=== PATIENT | male | born 1990 | race African-American/Black ===

== ENCOUNTER 2017-09-01 09:50 | Inpatient (IN) | payer SELFPAY ==
[2017-09-01] MEDS ORDERED: Ondansetron HCl/PF 4 MG/2 ML Vial ONE (11:37)
[2017-09-01] MEDS ORDERED: Acetaminophen 500 MG TAB ONE (12:36)
[2017-09-01] MEDS ORDERED: ISOVUE-370 76%-LOCM 1 ML ONE (12:42)
--- NOTE | 2017-09-01 12:44 | CT ---
CT ANGIOGRAM CHEST: 09/01/2017 HISTORY: Dyspnea. Shortness of breath. Productive cough. COMPARISON: Chest CT without contrast from 03/04/2016. TECHNIQUE: Serial axial CT imaging obtained at 2.5 mm intervals, from the thoracic inlet through the upper abdom en, with IV contrast, using a CT angiogram protocol. Coronal and sagittal 3D reformatted imaging obt ained. FINDINGS: No axillary lymphadenopathy is noted. No enlarged lymph nodes are seen in the hilar or mediastinal regions. There are granulomata within the spleen. No significant pleural, pericardial, or mediastinal fluid is noted. Secondary to timing of the contrast bolus, assessment of the lobar, segmental, and subsegmental pulmo nary arteries is suboptimal. There is no evidence for a central pulmonary arterial embolism. There is no pneumothorax evident. There is an area of perihilar opacity on the left with central air bronchogram formation, unchanged s chloe 03/04/2016, best seen on axial image 45. There are peripheral areas of linear density noted wit hin the lingula, posteriorly and inferiorly, stable as well. There is an area of nonspecific, ill-defined, reticulonodular density within the medial aspect of the superior segment, left lower lobe, best seen on image 48, new. There is an ill-defined area of irregular pulmonary parenchymal opacity on axial image 53, within the left lower lobe, measuring approximately 1.2 cm in transverse dimension, unchanged. There is an irregular, spiculated, mass-like opacity within the left lower lobe, further inferiorly, best seen on image 74, measuring 1.7 cm in transverse dimension, grossly unchanged. There is a cluster of reticulonodular densities within the posterolateral left lower lobe, superior s egment, best seen on image 56, new. There is a stable area of scar and/or volume loss within the right upper lobe, laterally, on image 32 . There are new, nonspecific, reticulonodular densities noted within the posterior aspect of the rig ht upper lobe, best seen on image 38. Extensive coarse, linear opacities are noted within the right middle lobe, stable. There are areas o f new reticulonodular density in the right middle lobe, best seen on image 52. There are coarse, linear interstitial densities along the bronchopulmonary vasculature, within the ri ght lower lobe, stable. There are some ill defined, new, reticulonodular densities in a bronchovascu lar distribution, within the right lower lobe. No lobar consolidation. Review of the osseous structures demonstrates no suspicious lytic or blastic bone lesions. IMPRESSION: 1. No evidence for a central pulmonary embolism. Distal pulmonary arterial branches are not optimal ly assessed secondary to timing. 2. There are extensive, coarse densities within both lungs, stable when compared to prior imaging, s uggesting scar. There are numerous new clustered areas of reticulonodular density, as detailed above , suggesting a superimposed acute nonspecific infectious/inflammatory pneumonitis. Thus, follow-up i maging via CT, following treatment, is advised to document resolution of the acute reticulonodular de nsities. POS: [facility]
[2017-09-01 13:01] LABS: O2 Tension (PaO2) 65.8 mmHg (80.0-100.0); pH, Arterial 7.32 (7.35-7.45)
[2017-09-01 13:02] LABS: Bilirubin Moderate (Negative); Blood, Urine Moderate (Negative); Clarity CLEAR (Clear); Glucose, Urine (Dipstick) Negative (Negative); Leukocyte Negative (Negative); Nitrite Negative (Negative); Protein, Urine (Dipstick) 300 mg/dL (Neg-Trace)
[2017-09-01 13:02] LABS: Actual Bicarbonate (HCO3a) 32.7 mEq/L (22-26); Base Excess (BEa) 3.8 mEq/L (0 (+/-) 2.5); Calcium, Ionized 1.2 mmol/L (1.12-1.30); Hematocrit-ABG 59.8 % (42.0-52.0); Hemoglobin (Hb) 17.8 g/dL (14.0-18.0)
[2017-09-01 13:03] LABS: Bacteria/HPF None Seen HPF (None Seen); Pathc Cast-AUWi Flag 1.49 (0-2.49); Squamous Epithelial 0-3 HPF (0-3)
[2017-09-01 13:03] LABS: Analyzer IN Cardio ER; Puncture Site LRA
[2017-09-01 13:06] LABS: Hyaline Casts/LPF 0-3 HYALINE CAST LPF (0-3 Hyaline); Specific Gravity, Urine 1.057 (1.002-1.036)
[2017-09-01] MEDS ORDERED: methylPREDNISolone Sod Succ/PF 125 MG/2 ML VIAL ONE (13:12)
[2017-09-01 13:14] LABS: Amphetamine Not Detected (NotDetected); Barbiturates Screen Not Detected (NotDetected); Benzodiazepine Screen Not Detected (NotDetected); Cocaine Metabolite Screen Not Detected (NotDetected); Medtox Control Line Valid? VALID (VALID); Medtox Reader # READER 1; Methadone Not Detected (NotDetected); Methamphetamine Not Detected (NotDetected); Opiate Screen Not Detected (NotDetected); Oxycodone Screen Not Detected (NotDetected); Phencyclidine (PCP) Detected (NotDetected); THC/Cannabinoid Screen Detected (NotDetected); Tricyclic Screen Not Detected (NotDetected)
[2017-09-01] MEDS ORDERED: Water For Inject, Bacteriostat 30 ML ONE (13:30)
[2017-09-01] MEDS ORDERED: cefTRIAXone\\ROCEPHIN 2 GM, Admixture Fee 1 EACH in Sodium Chloride 0.9% 100 ML IVPB SCH (13:30)
--- NOTE | 2017-09-01 13:32 | RAD ---
CHEST ONE VIEW: HISTORY: Chest pain. Sepsis. COMPARISON: 01/09/2017 FINDINGS: The cardiac silhouette is magnified by projection. The pulmonary vasculature is at the upper limits of normal. Patchy infiltrates throughout the lungs, more pronounced at the bases, are similar in zach earance to the recent CT scan. No evidence of pneumothorax. surveillance monitor leads overly the chest. IMPRESSION: Multifocal pneumonitis. POS: [facility]
[2017-09-01] MEDS ORDERED: Azithromycin 500 MG in Sodium Chloride 0.9% 250 ML 250 ML IVPB SCH (13:45)
[2017-09-01 13:51] LABS: ALT (SGPT) 30 U/L (8-55); AST (SGOT) 28 U/L (5-34); Albumin 4.1 g/dL (3.5-5.0); Alkaline Phosphatase 58 U/L (40-150); Anion Gap 15 mmol/L (10-20); BUN (Urea Nitrogen) 12 mg/dL (8.9-20.6); Bilirubin, Total 0.9 mg/dL (0.2-1.2); Calc. Creatinine Clearance 0 mL/min (70-130); Calcium 8.9 mg/dL (7.8-10.44); Carbon Dioxide 30 mmol/L (22-29); Chloride 95 mmol/L (98-107); Estimated GFR-MDRD Greater than 90; Globulin 3.5 g/dL (2.4-3.5); Glucose 108 mg/dL (70-105); Potassium 3.9 mmol/L (3.5-5.1); Protein, Total 7.6 g/dL (6.0-8.3); Sodium 136 mmol/L (136-145)
[2017-09-01 13:53] LABS: Hemoglobin 18.1 g/dL (14.0-18.0); Mean Corpuscular HGB CONC 31.7 g/dL (32.0-36.0); Mean Corpuscular Hemoglobin 30.4 pg (27.0-31.0); Mean Corpuscular Volume 95.7 fl (80.0-94.0); Mean Platelet Volume 8.9 fL (7.4-10.4); Platelet Count 129 thou/uL (130-400); RBC Distribution Width 12.9 % (11.5-14.5); Red Blood Cell (RBC) Count 5.97 mill/uL (4.70-6.10); White Blood Cell (WBC) Count 6.7 thou/uL (4.8-10.8)
[2017-09-01] MEDS ORDERED: Ondansetron HCl/PF 4 MG/2 ML Vial IVP PRN (14:02)
[2017-09-01 14:18] LABS: Band 11 % (5-11); Lymphocytes 15 % (21-51); MDiff Complete? YES; Monocytes 9 % (0-10); Neutrophil 63 % (42-75); PLT Morphology Comment Appears Decreased; Reactive Lymphocytes 2 % (0-10)
--- NOTE | 2017-09-01 15:01 | HP ---
PRIMARY CARE PROVIDER: None. Referred to [facility] by [facility]. HISTORY OF PRESENT ILLNESS: The patient states he has been sick a month or so, got fired at work bec ause he could not do his job, short of breath, dyspnea on exertion, cough with green sputum, little b lood mixed in with it, undocumented fever, chills, night sweats, daily uses K2, PCP, THC and smokes a t least half pack a day. PAST MEDICAL HISTORY: Hypertension, asthma. He was admitted for a similar problem about 18 months a go. CURRENT MEDICATIONS: Takes no medicines. ALLERGIES: Has no medical allergies only. PAST SURGICAL HISTORY: Tonsillectomy. FAMILY HISTORY: Mother is alive at bedside with colon cancer, coronary artery disease, hypertension. Father unknown. SOCIAL HISTORY: Social status single. Smokes half a pack a day, uses aforementioned drugs, denies a lcohol. CODE STATUS: FULL CODE STATUS. REVIEW OF SYSTEMS: GENERAL: Headache. No dizziness or fainting. EYES: He has blurred vision. No double vision, flashing lights. EAR, NOSE, AND THROAT: No ear pain or drainage. No nasal bleeding . No trouble swallowing. CARDIAC: No chest pain, orthopnea or paroxysmal nocturnal dyspnea. RESPI RATIONS: See present illness. 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 GENITOURINARY: No hematuria, dysuria or nocturia. MUSCULOSKELETAL: No pain or swelling in his arms or legs. NEUROLOGIC: No strokes, seizu res, focal weakness. PSYCHIATRIC: No anxiety or depression. SKIN: No bruises, bleeding or rash. HEME/LYMPH: No tender or swollen lymph nodes in axilla, inguinal or cervical area. PHYSICAL EXAMINATION: VITAL SIGNS: Blood pressure 107/63, tachycardic at 124, respirations 30, O2 sat 95% on BiPAP 2 liter s. GENERAL: He is alert, oriented, cooperative. HEENT: Examination of his head, eyes, ears, nose, and throat reveal pupils equal, round, and reactiv e to light. Extraocular movements are intact. Sclerae are white. Tympanic membranes clear. Nose c lear. Oral mucous membranes are wet. NECK: Supple, without jugular venous distention, adenopathy or thyromegaly. CHEST: Clear to percussion, but he does have tight wheezes with rhonchi in all turner. HEART: Tachycardic rhythm. First and second heart sounds clear. No murmurs or gallops. ABDOMEN: Soft, bowel sounds are normal. There is no hepatosplenomegaly, no mass, no rebound, no bru its. EXTREMITIES: Reveal no cyanosis, clubbing or edema. PULSES: Carotid, radial, femoral, and dorsalis pedis pulses intact, symmetric. SKIN: Warm and dry without bruises or rash. HEME/LYMPH: No tender or swollen lymph nodes in axilla, inguinal or cervical area. NEUROLOGICAL: Cranial nerves II-XII are intact. Deep tendon reflexes symmetric. IMAGING DATA AND LABORATORY DATA: EKG; sinus tachycardia, no acute ST-T segment changes, reviewed by me. Chest x-ray; infiltrate in the right and left lower lobes. No cardiomegaly. CT angiogram reve als no pulmonary emboli. Laboratory drug screen reveals PCP and THC. Blood gas; pH 7.32, CO2 55, O2 68.5. ADMITTING DIAGNOSES: 1. Acute respiratory failure with hypoxia and hypercapnia. 2. Bilateral pneumonia. 3. Ongoing polysubstance abuse. 4. Acute exacerbation of pneumonia of asthma. PLAN: 1. IMCU. 2. BiPAP on 05/06 with O2 to maintain sats of 92%. 3. Nebulizers DuoNeb q.4 hours. 4. Blood cultures have been drawn. He will be started on cefepime and Levaquin. 5. IV steroids, high dose. 6. Pulmonology consult.
[2017-09-01 16:14] VITALS: BMI 46.7
[2017-09-01] MEDS ORDERED: Cefepime 2 GM in Sodium Chloride 0.9% 100 ML IVPB SCH (21:00)
[2017-09-02] MEDS: Cefepime 2 GM, Syringe 2.5 ML in Sterile Water 10 ML SLOW IVP SCH ×2 (00:06→10:06)
[2017-09-02] MEDS: Acetaminophen 325 MG TAB PO PRN (01:35)
[2017-09-02 04:55] LABS: #Lymphocytes 0.8 thou/uL (1.20-3.40); #Monocytes 0.4 thou/uL (0.11-0.59); #Neutrophils 1.8 thou/uL (1.40-6.50); %Basophils 0.7 % (0.0-1.0); %Eosinophils 0.1 % (0.0-10.0); %Lymphocytes 26.9 % (21.0-51.0); %Monocytes 12.8 % (0.0-10.0); %Neutrophils 59.5 % (42.0-75.0); Hemoglobin 17.4 g/dL (14.0-18.0); Mean Corpuscular HGB CONC 32.2 g/dL (32.0-36.0); Mean Corpuscular Volume 96.3 fl (80.0-94.0); Mean Platelet Volume 8.5 fL (7.4-10.4); Platelet Count 124 thou/uL (130-400); RBC Distribution Width 12.7 % (11.5-14.5); Red Blood Cell (RBC) Count 5.61 mill/uL (4.70-6.10); White Blood Cell (WBC) Count 3.1 thou/uL (4.8-10.8)
[2017-09-02 05:14] LABS: Anion Gap 15 mmol/L (10-20); BUN (Urea Nitrogen) 10 mg/dL (8.9-20.6); Calc. Creatinine Clearance 269 mL/min (70-130); Calcium 9.1 mg/dL (7.8-10.44); Carbon Dioxide 31 mmol/L (22-29); Chloride 97 mmol/L (98-107); Estimated GFR-MDRD Greater than 90; Glucose 201 mg/dL (70-105); Potassium 4.5 mmol/L (3.5-5.1); Sodium 138 mmol/L (136-145)
--- NOTE | 2017-09-02 06:15 | CON ---
DATE OF CONSULTATION: 09/01/2017 HISTORY OF PRESENT ILLNESS: Mr. Valentin is a 26-year-old male. I have seen him in the past. He had cavitary nodular infiltrates back in 2014 secondary to inhaled drug use. He underwent bronchoscopy with lavage. No acid-fast bacilli or other pathogens were identified. He never kept any followup appointments with me. He continues to use K2, PCP, and marijuana. He presented with extreme respiratory distress requiring BiPAP. He is better but [facility] He denies fever. His mother is at the bedside. She remembers me from his last admission when I was involved with in 2014. He is also a tobacco user. He has a history of hypertension and asthma. SOCIAL HISTORY: He denies being a daily drinker. He smokes multiple different drugs, smokes tobacco . MEDICATIONS: He is on no medications. ALLERGIES: Has no drug allergies. PAST SURGICAL HISTORY: He has had a tonsillectomy. FAMILY HISTORY: Positive for cancer, vascular disease, and hypertension. REVIEW OF SYSTEMS: Otherwise negative. PHYSICAL EXAMINATION: GENERAL: He is off BiPAP when I evaluated him. VITAL SIGNS: He is afebrile, heart rate is 114, respiratory rate is 28, temperature is 98 on 3 liter s, blood pressure 119/70. HEENT: Pupils are equal. NECK: Supple. LUNGS: Remarkable for coarse diffuse wheezes. HEART: Regular rhythm. ABDOMEN: Soft. EXTREMITIES: Without asymmetry. IMAGING: CT pulmonary angiogram was reviewed by me. He has changes of bronchiectasis. He has an area on his left unchanged since 2016. He has a density in the left base that is unchanged. IMPRESSION: 1. Reactive airways aggravated by inhaled K2, PCP, and marijuana or tobacco. 2. Perhaps a component of pneumonia, although I suspect the majority of his pulmonary findings are r elated to his inhaled drug use. He needs steroids, empiric antibiotics, nebulizer treatments. If his blood cultures are negative at 24 hours, I will simplify antibiotics. I have explained to him that he is not going to live to be 29 years old if he continues to use drugs. His mom is at the bedside. His reactive airways will lead to his demise. I explained to him that he almost today, morgan gill responded to aggressive respiratory care in the emergency room with BiPAP ventilation. Critical care time 30 minutes.
[2017-09-02] MEDS ORDERED: FLU VACC QS2017-18 36 mo. & older 0.5 ML SYRINGE IM ONE (09:00)
--- NOTE | 2017-09-02 18:30 | PRG ---
DATE OF SERVICE: 09/02/2017 SUBJECTIVE: Ms. Valentin medically improved. He says he is feeling much better. OBJECTIVE: VITAL SIGNS: He is afebrile, heart rate is 95-112, respiratory rate is 20, oximetry is 98 on 3 liters, blood pressure is 120/70. LUNGS: Still remarkable for mild wheezes. HEART: Regular rhythm. ABDOMEN: Soft. LABORATORY: White count 3.1, hemoglobin 17.4, platelets 124,000. Hemoglobin is 18.1 yesterday. Sodium 138, potassium 4.5, chloride 97, bicarbonate 31, BUN 10, and creatinine 0.4. IMPRESSION: 1. Respiratory failure, requiring noninvasive ventilation. 2. Status asthmaticus. 3. Bronchiectasis and chronic interstitial lung disease, most likely related to an inhaled drug abuse. He has undergone bronchoscopy in the past and no pathogens were identified. 4. Erythrocytosis on presentation decreasing with hydration. Untreated sleep apnea could be responsible for this as well as chronic hypoxemia associated with his frequent inhaled drug use. He has actually been using drugs every day and lost his job most likely because of this. Talked to his mom by phone today and answered all of her questions. He is stable to move out of the intermediate care unit in my opinion. He is also stable enough to come off IV, antimicrobial therapy, and steroids, and can be switched to p.o. medicines. GABRIEL
--- NOTE | 2017-09-02 21:05 | PDOC.PN ---
- Subjective Encounter Start Date: 09/02/17 Encounter Start Time: 20:35 Subjective: f/u for acute hypoxic resp failure post BiPAP now on O2 via NC. -: States feeling much better. No fever or chills. - Objective Resuscitation Status: Resuscitation Status FULL:Full Resuscitation MAR Reviewed: Yes Vital Signs & Weight: Vital Signs (12 hours) Temp Pulse Resp BP Pulse Ox 09/02/17 20:48 101 H 24 H 09/02/17 18:26 98.4 F 109 H 22 H 158/94 H 92 L 09/02/17 15:59 98.2 F 112 H 20 120/70 98 09/02/17 14:35 119 H 17 99 09/02/17 11:41 95 18 09/02/17 11:37 98.3 F 108 H 20 144/99 H 99 Weight Weight 312 lb 9 oz I&O: 09/01/17 09/02/17 09/03/17 06:59 06:59 06:59 Intake Total 1080 Output Total 1750 Balance -670 Result Diagrams: 09/02/17 04:11 09/02/17 04:11 Additional Labs: Laboratory Tests 09/01/17 09/01/17 09/01/17 10:57 12:20 13:21 Hgb 18.1 H Hct 57.1 H Plt Count 129 L Carbon Dioxide 30 H Ur Phencyclidine Scrn Detected H U Cannabinoids Screen Detected H Radiology Reviewed by me: Yes (CT chest - bilat pneumonitis) Phys Exam - Physical Examination Constitutional: NAD HEENT: PERRLA, oral pharynx no lesions Neck: no JVD, supple diminished in bases occasional wheezes tachycardic Gastrointestinal: soft, non-tender, no distention, positive bowel sounds Musculoskeletal: no edema, pulses present Neurological: normal sensation, moves all 4 limbs Psychiatric: A&O x 3 Skin: normal turgor, cap refill <2 seconds Dx/Plan (1) Acute respiratory failure with hypoxia and hypercapnia Code(s): J96.01 - ACUTE RESPIRATORY FAILURE WITH HYPOXIA; J96.02 - ACUTE RESPIRATORY FAILURE WITH HYPERCAPNIA Status: Acute Comment: s/p BiPAP, continue O2 via NC and wean as clinically indicated, continue Prednisone, Duonebs and Levaquin (2) Hypertension Code(s): I10 - ESSENTIAL (PRIMARY) HYPERTENSION Status: Chronic Qualifiers: Hypertension type: essential hypertension Qualified Code(s): I10 - Essential (primary) hypertension (3) Illicit drug use Code(s): F19.90 - OTHER PSYCHOACTIVE SUBSTANCE USE, UNSPECIFIED, UNCOMPLICATED Status: Acute Comment: Cessation resources prior to d/c (4) Morbid obesity Code(s): E66.01 - MORBID (SEVERE) OBESITY DUE TO EXCESS CALORIES Status: Chronic - 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
[2017-09-03] MEDS: Acetaminophen 325 MG TAB PO PRN (03:50)
[2017-09-03] MEDS: predniSONE 20 MG TAB PO SCH (07:35)
--- NOTE | 2017-09-03 18:57 | PDOC.PN ---
- Subjective Encounter Start Date: 09/03/17 Encounter Start Time: 08:00 Subjective: f/u for acute hypoxic resp failure s/p mech ventilation. Still requiring -: O2 @ 4-5L/min NC. Feels better overall. Some residual cough. No fever. - Objective Resuscitation Status: Resuscitation Status FULL:Full Resuscitation MAR Reviewed: Yes Vital Signs & Weight: Vital Signs (12 hours) Temp Pulse Resp BP Pulse Ox 09/03/17 15:56 92 16 09/03/17 11:50 93 L 09/03/17 11:47 99 16 09/03/17 08:50 92 16 09/03/17 08:00 97.8 F 101 H 28 H 93 L 09/03/17 07:25 97.8 F 101 H 28 H 135/76 93 L Weight Weight 312 lb 9 oz I&O: 09/02/17 09/03/17 09/04/17 06:59 06:59 06:59 Intake Total 1080 240 Output Total 1750 Balance -670 240 Result Diagrams: 09/02/17 04:11 09/02/17 04:11 Additional Labs: Microbiology 09/01/17 11:26 Nasal swab Influenza Types A,B Direct EIA - Final 09/01/17 13:20 Venous blood - Left Arm Blood Culture - Preliminary NO GROWTH AT 48 HOURS 09/01/17 13:15 Venous blood - Left Arm Blood Culture - Preliminary NO GROWTH AT 48 HOURS Laboratory Tests 09/01/17 09/01/17 09/01/17 10:57 12:20 13:21 Hgb 18.1 H Hct 57.1 H Plt Count 129 L Carbon Dioxide 30 H Ur Phencyclidine Scrn Detected H U Cannabinoids Screen Detected H Phys Exam - Physical Examination Constitutional: NAD HEENT: PERRLA, oral pharynx no lesions Neck: no JVD, supple diminished bilat, few exp wheezes and rhonchi Cardiovascular: RRR Gastrointestinal: soft, non-tender, no distention, positive bowel sounds Musculoskeletal: no edema, pulses present Neurological: normal sensation, moves all 4 limbs Psychiatric: A&O x 3 Skin: normal turgor, cap refill <2 seconds Dx/Plan (1) Acute respiratory failure with hypoxia and hypercapnia Code(s): J96.01 - ACUTE RESPIRATORY FAILURE WITH HYPOXIA; J96.02 - ACUTE RESPIRATORY FAILURE WITH HYPERCAPNIA Status: Acute Comment: s/p BiPAP, continue O2 via NC and wean as clinically indicated, continue Prednisone, Duonebs and Levaquin, still requiring O2 with attempts to wean (2) Hypertension Code(s): I10 - ESSENTIAL (PRIMARY) HYPERTENSION Status: Chronic Qualifiers: Hypertension type: essential hypertension Qualified Code(s): I10 - Essential (primary) hypertension (3) Illicit drug use Code(s): F19.90 - OTHER PSYCHOACTIVE SUBSTANCE USE, UNSPECIFIED, UNCOMPLICATED Status: Acute Comment: Cessation resources prior to d/c (4) Morbid obesity Code(s): E66.01 - MORBID (SEVERE) OBESITY DUE TO EXCESS CALORIES Status: Chronic - 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
[2017-09-04] MEDS: predniSONE 20 MG TAB PO SCH (08:28)
--- NOTE | 2017-09-04 15:08 | PDOC.PN ---
- Subjective Encounter Start Date: 09/04/17 Encounter Start Time: 09:40 -: old records requested/rev Pt seen and exmained, chart reviewed in its entirety, thsi is my first visit with this patient Breathing much better, still wheezing, increased expiration, no [place], no PND, no F/C, no N/V/D/c, some cough, nonprouctive. sidney po 10 point ROS performed and neg for all systems except as above - Objective Resuscitation Status: Resuscitation Status FULL:Full Resuscitation MAR Reviewed: Yes Vital Signs & Weight: Vital Signs (12 hours) Temp Pulse Resp BP Pulse Ox 09/04/17 10:50 94 16 09/04/17 08:00 98.2 F 107 H 20 93 L 09/04/17 07:38 98.2 F 107 H 20 129/85 93 L 09/04/17 07:18 88 L 09/04/17 07:15 98 16 Weight Weight 312 lb 9 oz I&O: 09/03/17 09/04/17 09/05/17 06:59 06:59 06:59 Intake Total 240 Balance 240 Result Diagrams: 09/02/17 04:11 09/02/17 04:11 Radiology Reviewed by me: Yes EKG Reviewed by me: Yes Phys Exam - Physical Examination Constitutional: NAD HEENT: PERRLA, moist MMs, sclera anicteric, oral pharynx no lesions Neck: no nodes, no JVD, supple Respiratory: no rales, no rhonchi exp prolongation, weezing, no rhonchi, no rales Cardiovascular: RRR, no significant murmur, no rub Gastrointestinal: soft, non-tender, no distention, positive bowel sounds Musculoskeletal: no edema, pulses present Neurological: non-focal, normal sensation, moves all 4 limbs Lymphatic: no nodes Psychiatric: normal affect, A&O x 3 Skin: no rash, normal turgor, cap refill <2 seconds Dx/Plan (1) Acute respiratory failure with hypoxia and hypercapnia Code(s): J96.01 - ACUTE RESPIRATORY FAILURE WITH HYPOXIA; J96.02 - ACUTE RESPIRATORY FAILURE WITH HYPERCAPNIA Status: Acute Comment: s/p BiPAP, continue O2 via NC and wean as clinically indicated, continue Prednisone, Duonebs and Levaquin, 93% on RA now, off o2, off of biPAP. Home in 1-2 days (2) Anxiety Code(s): F41.9 - ANXIETY DISORDER, UNSPECIFIED Status: Acute (3) Cavitary lung disease Code(s): J98.4 - OTHER DISORDERS OF LUNG Status: Chronic (4) Dyspnea Code(s): R06.00 - DYSPNEA, UNSPECIFIED Status: Acute Qualifiers: Dyspnea type: shortness of breath Qualified Code(s): R06.02 - Shortness of breath; R06.00 - Dyspnea, unspecified; R06.01 - Orthopnea (5) Illicit drug use Code(s): F19.90 - OTHER PSYCHOACTIVE SUBSTANCE USE, UNSPECIFIED, UNCOMPLICATED Status: Acute Comment: Cessation resources prior to d/c (6) Hypertension Code(s): I10 - ESSENTIAL (PRIMARY) HYPERTENSION Status: Chronic Qualifiers: Hypertension type: essential hypertension Qualified Code(s): I10 - Essential (primary) hypertension (7) Morbid obesity Code(s): E66.01 - MORBID (SEVERE) OBESITY DUE TO EXCESS CALORIES Status: Chronic - Plan cont current plan of care, continue antibiotics, respiratory therapy, out of bed /ambulate, DVT proph w/lovenox * .
[2017-09-05 06:32] LABS: #Lymphocytes 2.7 thou/uL (1.20-3.40); #Neutrophils 4.5 thou/uL (1.40-6.50); %Basophils 0.5 % (0.0-1.0); %Eosinophils 0.6 % (0.0-10.0); %Monocytes 11.6 % (0.0-10.0); %Neutrophils 54.3 % (42.0-75.0); Hemoglobin 18.1 g/dL (14.0-18.0); Mean Corpuscular HGB CONC 31.9 g/dL (32.0-36.0); Mean Corpuscular Hemoglobin 30.4 pg (27.0-31.0); Mean Corpuscular Volume 95.4 fl (80.0-94.0); Mean Platelet Volume 7.9 fL (7.4-10.4); Platelet Count 168 thou/uL (130-400); RBC Distribution Width 12.7 % (11.5-14.5); Red Blood Cell (RBC) Count 5.94 mill/uL (4.70-6.10); White Blood Cell (WBC) Count 8.3 thou/uL (4.8-10.8)
[2017-09-05 06:48] LABS: Anion Gap 11 mmol/L (10-20); BUN (Urea Nitrogen) 11 mg/dL (8.9-20.6); Calc. Creatinine Clearance 293 mL/min (70-130); Calcium 9.4 mg/dL (7.8-10.44); Carbon Dioxide 32 mmol/L (22-29); Chloride 100 mmol/L (98-107); Estimated GFR-MDRD Greater than 90; Glucose 96 mg/dL (70-105); Magnesium 1.9 mg/dL (1.6-2.6); Sodium 139 mmol/L (136-145)
[2017-09-05 07:57] VITALS: BP 126/85; TEMP 98.6
[2017-09-05] MEDS: predniSONE 20 MG TAB PO SCH (08:26)
[2017-09-05] MEDS ORDERED: Albuterol Sulfate 2.5 mg/3 ml Neb NEB PRN (10:06)
--- NOTE | 2017-09-05 15:09 | DIS ---
DATE OF ADMISSION: 09/01/2017 DATE OF DISCHARGE: 09/05/2017 PRIMARY CARE PHYSICIAN: None. DISCHARGE DIAGNOSES: 1. Acute hypoxic respiratory failure. 2. Acute asthma exacerbation. 3. Severe obesity. 4. Polysubstance abuse, PCP/THC. CONSULTATIONS: Pulmonary Critical Care, Dr. Negrete. PROCEDURES: None. HISTORY AND PHYSICAL: Mr. Valentin is a 26-year-old -Malag[place] male with the above history who p resents for acute shortness of breath. He was found to be positive for PCP, K2 and THC. He does use tobacco. He was initially admitted to the intermediate care unit and was requiring oxygen. From 09/01/2017 to 09/02/2017, the patient improved and was stable for transfer to the floor. He was transferred to the Oncology Unit as overflow from Medical. 09/02/2017 to 09/03/2017, breathing continued to improve. He was still having some wheezing and prol onged expiratory phase. He is tolerating his antibiotics and nebulizer treatments. On 09/04/2017, I took over the case. He was still having prolonged expiratory phase and then some wh eezing, but has been weaned off of oxygen. We will continue steroids and breathing treatments. By today 09/05/2017, breathing sounds are much improved. He is still on room air, and was stable for discharge with outpatient followup. PHYSICAL EXAMINATION: The patient was seen and examined on the day of discharge. DISCHARGE PLAN AND DISPOSITION: Discussed with the patient face to face and his mother on the teleph one. DISCHARGE MEDICATIONS: 1. DuoNebs q.6 h. 2. Albuterol q.2 h. p.r.n. shortness of breath or wheezing. 3. Nebulizer with excessive use. 4. Levofloxacin 500 mg daily for 3 more days. 5. Prednisone 40 mg daily to decrease by 10 mg daily every third day until weaned off. Prescription sent to [facility] in [place]. DISCHARGE CONDITION: Good. DISPOSITION: Discharged home via private vehicle. DISCHARGE DIET: Heart healthy recommended. The patient counseled for weight loss. DISCHARGE ACTIVITY: Per cardiopulmonary limits. Encouraged to stay away from illicit substances.
== END 2017-09-05 12:29 | disposition home or self-care (01) | DRG 189 ==
LOC: ERS 09:50 → IMCU/EMU 13:56 → ONC 09-02 18:20
PROVIDERS: ADMIT Internal Medicine; ATTEND Internal Medicine
PROC: 5A09457 Assistance with Respiratory Ventilation, 24-96 Consecutive Hours, Continuous Positive Airway Pressure (ICD-10-PCS; principal; 2017-09-05)
DX: J96.01 Acute respiratory failure with hypoxia (principal); J45.902 Unspecified asthma with status asthmaticus; E66.01 Morbid (severe) obesity due to excess calories; J45.901 Unspecified asthma with (acute) exacerbation; Z68.42 Body mass index [BMI] 45.0-49.9, adult; J96.02 Acute respiratory failure with hypercapnia; I10 Essential (primary) hypertension; J47.9 Bronchiectasis, uncomplicated; F16.10 Hallucinogen abuse, uncomplicated; F12.10 Cannabis abuse, uncomplicated; F17.210 Nicotine dependence, cigarettes, uncomplicated; Z82.49 Family history of ischemic heart disease and other diseases of the circulatory system; Z80.0 Family history of malignant neoplasm of digestive organs
CPT/HCPCS: 36415; 71275; 80048; 80053; 80306; 81003; 81015; 82805; 83605; 83735; 85025; 87040; 93005; 94640; 94660; 94760; 96360; 96361; 96365; 96374; 96375; A4216; J0456; J0692; J0696; J2405; J2930; J7050; J7506; J7620

== ENCOUNTER 2019-11-28 11:20 | Inpatient (IN) | payer OTHER, SELFPAY ==
[2019-11-28] MEDS ORDERED: Ondansetron ODT 4 MG TAB PO PRN (13:41)
[2019-11-28 14:30] VITALS: BMI 49.2
[2019-11-28] MEDS ORDERED: Ventolin HFA Inhaler 60 PUFF INHALER INH PRN (16:17)
[2019-11-28] MEDS: cefTRIAXone\\ROCEPHIN 1 GM in Sodium Chloride 0.9% 100 ML IVPB SCH (17:11)
[2019-11-28] MEDS: Acetaminophen 325 MG TAB PO PRN (17:11)
--- NOTE | 2019-11-28 19:16 | PDOC.HHP ---
Hospitalist HPI - History of Present Illness shortness of breath History of Present Illness: This is a 29 year old male with history of asthma, tobacco abuse who presented to the ER with shortness of breath. The patient states that he started developing shortness of breath a few days ago. It was worst at rest and on exertion and especially while laying down. He took his friend's fluid pill and states that it helped relieve his congestion, however he had developed a fever to 101 and his girlfriend urged him to go to the emergency room. The patient reports having to sleep at an angle lately. He also has been having a productive cough of green phlegm. He denies chest pain but does report some chest congestion. He has been smoking 1/2 pack a day. He denies recent travel history. ED Course: The patient presented to [facility], was found to have BP of 160/101, temp of 100.8, HR of 120, oxygen saturation of 85% on room air. The patient had a chest X ray which was normal. He was given prednisone 60 mg, azithromycin, ventolin inhaler and 1L of fluid and transferred here for further evaluation. Labs showed a hemoglobin of 20 which is chronic per ER attending Hospitalist ROS - Medication Medications: Active Medications Generic Name Dose Route Start Last Admin Trade Name Freq PRN Reason Stop Dose Admin Acetaminophen 650 mg 11/28/19 16:16 11/28/19 17:11 Tylenol PO 650 mg Q6H PRN Administration Fever/Mild Pain (1-3) Ceftriaxone Sodium 1 gm/ 100 mls @ 200 mls/hr 11/28/19 17:00 11/28/19 17:11 Sodium Chloride IVPB 100 mls Q24HR JAMES Administration Hospitalist History - Past Medical History Other Medical History: Asthma Polycythemia Tobacco abuse - Past Surgical History Past Surgical History: reports: Tonsillectomy - Family History Other Family History: no lung problems in the family - Social History Smoking Status: Current every day smoker (1/2 pack a day. Smokes K2 as well.) Alcohol: reports: None Drugs: reports: none Living Situation: Other (lives with girlfriend) - Exam General Appearance: NAD, awake alert Eye: PERRL, anicteric sclera ENT: normocephalic atraumatic, no oropharyngeal lesions Neck: supple, no JVD Heart: no murmur, no gallops, no rubs Respiratory - other findings: bilateral crackles, tachypneic Gastrointestinal: soft, non-tender, non-distended, normal bowel sounds Extremities: no cyanosis, no clubbing, no edema Skin: normal turgor, no lesions, no rashes Hospitalist H&P A/P - Plan Plan: This is a 29 year old morbidly obese male presenting with fever, hypoxia, shortness of breath #Sepsis likely secondary to pneumonia #Acute hypoxic respiratory failure secondary to pneumonia and Asthma exacerbation - s/p prednisone and azithromycin. Will add ceftriaxone. Chest Xray normal but lung sounds and fever suspicious for pneumonia - blood cultures - flu swab negative - COVID PCR sent at [facility] and pending - IV fluids at low dose 50/hour - continue standing breathing treatments - add mucinex - trend troponin x 3 Polycythemia - Hb 20, will add IV fluid Tobacco abuse - will order nicotine patch DVT prophylaxis: lovenox COde status:full code
[2019-11-28] MEDS ORDERED: Ipratropium Oral Inhaler INH SCH (19:24)
[2019-11-28] MEDS ORDERED: Sodium Chloride 0.9% 1,000 ML IV SCH (19:30)
[2019-11-28] MEDS ORDERED: Albuterol 200 PUFF (6.7GM INHALER) INH PRN (19:46)
[2019-11-28] MEDS: Nicotine 14 MG PATCH TD SCH (20:49)
[2019-11-28] MEDS: Famotidine 20 MG TAB PO SCH (20:49)
[2019-11-28] MEDS: Enoxaparin Sodium 40 MG/0.4 ML SYRINGE SC SCH (20:49)
[2019-11-28] MEDS: guaiFENesin ER 600 MG TAB PO SCH (20:50)
[2019-11-28] MEDS: Famotidine/PF 20 mg/2ml Vial SLOW IVP SCH (20:51)
[2019-11-29 05:40] LABS: Hemoglobin 21.1 g/dL (14.0-18.0)
[2019-11-29] MEDS: Mometasone 100 MCG/Formoterol 5 MCG 120 PUFF INHALER INH SCH ×2 (06:28→18:36)
[2019-11-29 06:39] LABS: Band 1 % (5-11); Lymphocytes 36 % (21-51); MDiff Complete? YES; Mean Corpuscular HGB CONC 31.2 g/dL (32.0-36.0); Mean Corpuscular Hemoglobin 30.9 pg (27.0-31.0); Mean Corpuscular Volume 99.1 fL (78.0-98.0); Mean Platelet Volume 9.1 fL (7.4-10.4); Monocytes 17 % (0-10); Neutrophil 46 % (42-75); Platelet Count 140 thou/uL (130-400); Platelet Morphology Comment Appears Adequate; RBC Distribution Width 14.9 % (11.5-14.5); RBC Morphology Normal; Red Blood Cell (RBC) Count 6.83 mill/uL (4.70-6.10); White Blood Cell (WBC) Count 6.4 thou/uL (4.8-10.8)
[2019-11-29 07:39] LABS: Chloride 99 mmol/L (98-107); Sodium 138 mmol/L (136-145)
[2019-11-29 07:40] LABS: Calcium 9.5 mg/dL (7.8-10.44); Glucose 87 mg/dL (70-105)
[2019-11-29 07:42] LABS: Anion Gap 17 mmol/L (10-20); Carbon Dioxide 27 mmol/L (22-29)
[2019-11-29 07:43] LABS: Calc. Creatinine Clearance 242 mL/min (70-130); Estimated GFR-MDRD Greater than 90
[2019-11-29 07:44] LABS: BUN (Urea Nitrogen) 9 mg/dL (8.9-20.6)
[2019-11-29] MEDS: guaiFENesin ER 600 MG TAB PO SCH ×2 (08:08→20:20)
[2019-11-29] MEDS: Famotidine 20 MG TAB PO SCH ×2 (08:08→20:19)
[2019-11-29] MEDS: Acetaminophen 325 MG TAB PO PRN (08:08)
[2019-11-29] MEDS: Famotidine/PF 20 mg/2ml Vial SLOW IVP SCH ×2 (08:09→20:19)
[2019-11-29] MEDS: Azithromycin 250 MG TAB PO SCH (08:09)
[2019-11-29] MEDS ORDERED: Furosemide 20 MG/2 ML VIAL SLOW IVP SCH (10:45)
[2019-11-29] MEDS ORDERED: methylPREDNISolone Sod Succ 40 MG VIAL IVP SCH (11:15)
--- NOTE | 2019-11-29 11:31 | RAD ---
PORTABLE CHEST 1 VIEW: DATE: 11/29/2019. TIME: 9:38 AM. HISTORY: Shortness of breath. FINDINGS: Comparison is made with the exam of previous day. The heart size is normal. The lungs are expanded with mild patchy infiltrates in the lower lung fiel ds which appear to be new since the last exam. No pneumothoraces or large effusions are seen. POS: [facility]
--- NOTE | 2019-11-29 12:57 | PDOC.HOSPP ---
- Subjective Encounter Date: 11/29/19 Encounter Time: 10:00 Subjective: The patient states he feels much better and wants to go home. He reports no significant cough, still short of breath some, no chest pain. Per nursing he is still requiring 5L of oxygen - Objective Vital Signs & Weight: Vital Signs (12 hours) Temp Pulse Resp BP BP Pulse Ox 11/29/19 11:36 98.0 F 119 H 20 139/97 H 90 L 11/29/19 08:58 97.1 F L 125 H 30 H 166/102 H 88 L 11/29/19 06:28 115 H 22 H 94 L 11/29/19 03:10 96.7 F L 115 H 22 H 139/100 H 94 L Weight Weight 314 lb 4.8 oz I&O: 11/28/19 11/29/19 11/30/19 06:59 06:59 06:59 Intake Total 740 Output Total 600 Balance 140 Result Diagrams: 11/29/19 05:02 11/29/19 06:56 Hospitalist ROS - Review of Systems Constitutional: denies: fever, chills - Medication Medications: Active Medications Generic Name Dose Route Start Last Admin Trade Name Freq PRN Reason Stop Dose Admin Acetaminophen 650 mg 11/28/19 16:16 11/29/19 08:08 Tylenol PO 650 mg Q6H PRN Administration Fever/Mild Pain (1-3) Albuterol Sulfate 2 puff 11/28/19 19:46 11/29/19 06:05 Proventil Hfa INH 2 puff Q4H PRN Administration SOB &/or Wheezing Azithromycin 250 mg 11/29/19 09:00 11/29/19 08:09 Zithromax PO 12/02/19 09:01 250 mg DAILY JAMES Administration Enoxaparin Sodium 40 mg 11/28/19 21:00 11/28/19 20:49 Lovenox SC 40 mg 2100 JAMES Administration Famotidine 20 mg 11/28/19 21:00 11/29/19 08:09 Pepcid SLOW IVP Not Given Q12HR JAMES Famotidine 20 mg 11/28/19 21:00 11/29/19 08:08 Pepcid PO 20 mg BID JAMES Administration Guaifenesin 600 mg 11/28/19 21:00 11/29/19 08:08 Mucinex PO 600 mg Q12HR JAMES Administration Ceftriaxone Sodium 1 gm/ 100 mls @ 200 mls/hr 11/28/19 17:00 11/28/19 17:11 Sodium Chloride IVPB 100 mls Q24HR JAMES Administration Methylprednisolone Sodium Succinate 40 mg 11/29/19 11:15 11/29/19 12:07 Solu-Medrol IVP 11/29/19 14:00 40 mg NOW JAMES Administration Mometasone Furoate/Formoterol Fumar 2 puff 11/29/19 06:30 11/29/19 06:28 Dulera 100 Mcg/5 Mcg Inhaler INH 2 puff BID-RT JAMES Administration Nicotine 14 mg 11/28/19 20:00 11/28/19 20:49 Nicoderm Patch TD 14 mg Q24HR JAMES Administration - Exam General Appearance: NAD, awake alert General - other findings: obese Eye: PERRL, anicteric sclera ENT: normocephalic atraumatic, no oropharyngeal lesions Neck: no JVD Heart: RRR, no murmur, no gallops, no rubs Respiratory: CTAB Respiratory - other findings: bilateral crackles Gastrointestinal: soft, non-tender, non-distended, normal bowel sounds Extremities: no cyanosis, no clubbing, no edema Skin: normal turgor, no lesions, no rashes Hosp A/P - Plan This is 29 year old male presenting with sepsis from pneumonia #Acute hypoxic respiratory failure secondary to sepsis from pneumonia #Possible acute CHF #Asthma exacerbation - continue ceftriaxone and azithromycin - blood cultures negative - COVID negative. Flu negative - will add IV steroids 40 mg - duonebs q4 hours - albuterol q2 hours prn - check ECHO due to orthopnea. Troponin negative
[2019-11-29] MEDS: cefTRIAXone\\ROCEPHIN 1 GM in Sodium Chloride 0.9% 100 ML IVPB SCH (17:43)
[2019-11-29] MEDS: Nicotine 14 MG PATCH TD SCH (20:19)
[2019-11-29] MEDS: Enoxaparin Sodium 40 MG/0.4 ML SYRINGE SC SCH (20:19)
[2019-11-30 04:59] LABS: Hemoglobin 20.2 g/dL (14.0-18.0); Mean Corpuscular HGB CONC 31.4 g/dL (32.0-36.0); Mean Corpuscular Hemoglobin 31.4 pg (27.0-31.0); Mean Platelet Volume 8.1 fL (7.4-10.4); Platelet Count 133 thou/uL (130-400); RBC Distribution Width 14.4 % (11.5-14.5); Red Blood Cell (RBC) Count 6.44 mill/uL (4.70-6.10)
[2019-11-30 05:15] LABS: Anion Gap 17 mmol/L (10-20); BUN (Urea Nitrogen) 12 mg/dL (8.9-20.6); Calc. Creatinine Clearance 266 mL/min (70-130); Calcium 9.4 mg/dL (7.8-10.44); Carbon Dioxide 28 mmol/L (22-29); Chloride 97 mmol/L (98-107); Estimated GFR-MDRD Greater than 90; Glucose 91 mg/dL (70-105); Potassium 5.1 mmol/L (3.5-5.1); Sodium 137 mmol/L (136-145)
[2019-11-30] MEDS: Mometasone 100 MCG/Formoterol 5 MCG 120 PUFF INHALER INH SCH (07:35)
[2019-11-30] MEDS: Azithromycin 250 MG TAB PO SCH (09:37)
[2019-11-30] MEDS: guaiFENesin ER 600 MG TAB PO SCH ×2 (09:37→20:08)
[2019-11-30] MEDS: Acetaminophen 325 MG TAB PO PRN (09:37)
[2019-11-30] MEDS: Famotidine 20 MG TAB PO SCH ×2 (09:37→20:08)
[2019-11-30] MEDS ORDERED: methylPREDNISolone Sod Succ 40 MG VIAL IVP SCH (12:00)
--- NOTE | 2019-11-30 12:21 | PDOC.HOSPP ---
- Subjective Encounter Date: 11/30/19 Encounter Time: 11:00 Subjective: CC: shortness of breath The patient reports he is feeling much better. When I walked in, he was not using his oxygen and oxygen level was noted to be 82% on room air. He still has excessive rales. SPoke to the , she has concerns about patient having VANESSA and he stops breathing at night. His sleep study was postponed until December. Patient states steroids helped him cough up more phlegm. 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 but concerned he is still inhaling the dust particles when he takes off the suit - Objective Vital Signs & Weight: Vital Signs (12 hours) Temp Pulse Resp BP BP Pulse Ox 11/30/19 11:27 98.0 F 105 H 20 131/79 95 11/30/19 11:19 92 L 11/30/19 11:16 104 H 28 H 92 L 11/30/19 07:58 97.6 F 107 H 21 H 164/97 H 93 L 11/30/19 03:50 97.2 F L 106 H 22 H 126/77 92 L Weight Admit Weight 314 lb 4.8 oz Weight 314 lb 4.8 oz I&O: 11/29/19 11/30/19 12/01/19 06:59 06:59 06:59 Intake Total 740 1502 Output Total 600 400 Balance 140 1102 Result Diagrams: 11/30/19 04:40 11/30/19 04:40 Hospitalist ROS - Review of Systems Constitutional: denies: fever, chills - Medication Medications: Active Medications Generic Name Dose Route Start Last Admin Trade Name Freq PRN Reason Stop Dose Admin Acetaminophen 650 mg 11/28/19 16:16 11/30/19 09:37 Tylenol PO 650 mg Q6H PRN Administration Fever/Mild Pain (1-3) Albuterol Sulfate 2 puff 11/28/19 19:46 11/29/19 06:05 Proventil Hfa INH 2 puff Q4H PRN Administration SOB &/or Wheezing Azithromycin 250 mg 11/29/19 09:00 11/30/19 09:37 Zithromax PO 12/02/19 09:01 250 mg DAILY JAMES Administration Enoxaparin Sodium 40 mg 11/28/19 21:00 11/29/19 20:19 Lovenox SC 40 mg 2100 JAMES Administration Famotidine 20 mg 11/28/19 21:00 11/30/19 09:37 Pepcid PO 20 mg BID JAMES Administration Guaifenesin 600 mg 11/28/19 21:00 11/30/19 09:37 Mucinex PO 600 mg Q12HR JAMES Administration Ceftriaxone Sodium 1 gm/ 100 mls @ 200 mls/hr 11/28/19 17:00 11/29/19 17:43 Sodium Chloride IVPB 100 mls Q24HR JAMES Administration Nicotine 14 mg 11/28/19 20:00 11/29/19 20:19 Nicoderm Patch TD 14 mg Q24HR JAMES Administration Sodium Chloride 10 ml 11/29/19 21:00 11/30/19 09:37 Flush - Normal Saline IVF 10 ml Q12HR JAMES Administration - Exam General Appearance: NAD General - other findings: Morbidly obese Eye: PERRL, anicteric sclera ENT: normocephalic atraumatic, no oropharyngeal lesions Neck: no JVD Heart: RRR, no murmur, no gallops, no rubs Respiratory - other findings: bilateral crackles Gastrointestinal: soft, non-tender, non-distended, no rigidity Extremities: no cyanosis, no clubbing, no edema Skin: normal turgor, no lesions, no rashes Neurological: cranial nerve grossly intact, normal sensation to touch Musculoskeletal: normal tone, normal strength, no muscle wasting Psychiatric: normal affect, normal behavior, A&O x 3 Hosp A/P - Plan This is 29 year old male presenting with sepsis from pneumonia #Acute hypoxic respiratory failure secondary to sepsis from pneumonia #Possible acute CHF #Asthma exacerbation #Possible VANESSA - continue ceftriaxone and azithromycin - blood cultures negative - COVID negative. Flu negative - increase steroids to 40 mg IV q6 hours - continue duoneb q4 hours and albuterol q2 hours prn - give additional dose of lasix 40 mg IV - check ECHO - obtain CT chest given history of sandblasting - will add IV steroids 40 mg - duonebs q4 hours - albuterol q2 hours prn - check ECHO due to orthopnea. - pulmonary consult given history of VANESSA and patient's requesting
[2019-11-30] MEDS ORDERED: Furosemide 40 MG/4 ML VIAL SLOW IVP SCH (12:30)
[2019-11-30] MEDS: methylPREDNISolone Sod Succ 40 MG VIAL IVP SCH ×2 (13:00→17:11)
--- NOTE | 2019-11-30 14:37 | CT ---
CT OF THE CHEST PERFORMED WITHOUT CONTRAST ENHANCEMENT: 11/30/19 HISTORY: Persistent cough, history of asthma. COMPARISON: A 04/06/19 study. Once again, parenchymal scarring is seen in both lung turner. The overall appearance is fairly simila r to previous examination without any definite acute changes. There is evidence of air trapping in ad dition to the chronic change. No pleural effusions. No areas of consolidation. No significant mediastinal or hilar adenopathy. The visualized liver parenchyma shows no focal findings. IMPRESSION: Fairly extensive parenchymal lung scarring, stable as compared to a 04/06/2019 exam. POS: [facility]
--- NOTE | 2019-11-30 16:04 | CON ---
DATE OF CONSULTATION: HISTORY OF PRESENT ILLNESS: A 29-year-old morbidly obese gentleman, who weighs 140 kg, presented to the hospital on November 27 with a blood pressure of 162/110, temperature 100, sats 85% on room air, pulse 126. Symptoms of shortness of breath, coughing, fever, and yellow sputum. He has been smoking up to two packs a day. He is presently unemployed and apparently use K2 marijuana at the day of his admission. He denies any IV drug abuse. He has been seen by Dr. Negrete in the past. He is morbidly obese. He states prior to recent illness, he said he is relatively active and can walk a fair distance without getting markedly short of breath. Previous history of pneumonia, previous history of chronic lung disease and asthma. Previous surgeries of adenoids. 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 ALLERGIES: NONE. HISTORY OF HYPERTENSION. TAKES NO MEDICATION. HE SEES SOME PHYSICIAN IN [place], DOES NOT KNOW THE NAME. HOME MEDICATIONS: Apparently includes Advair rescue inhaler. REVIEW OF SYSTEMS: Otherwise, 10-point negative. PHYSICAL EXAMINATION: GENERAL: Morbidly obese gentleman. VITAL SIGNS: Temperature 97, pulse 107, respirations 21, sats 93% on a mask, blood pressure 160/97. CHEST: Diffuse wheezing, rhonchi, crackles. CARDIAC: Normal S1, S2. No gallops. ABDOMEN: No masses. EXTREMITIES: No edema. IMAGING: X-ray showed bilateral infiltrates. H and H are elevated at 20 and 64. He has polycythemia probably from chronic hypoxemia. Otherwise, his renal function was normal. BNP is unremarkable. Echo was ordered. CT of his chest has been ordered by his admitting physician. LABORATORY: His white count was only 7000. IMPRESSION AND PLAN: 1. Chronic obstructive pulmonary disease exacerbation, bronchitis, bilateral bronchopneumonia. 2. Morbid obesity, sleep apnea. 3. Hypertension, initiate antihypertensive medication. He needs an outpatient sleep study. He needs more aggressive breathing treatments while in the hospital. He is advised to refrain from smoking completely. He probably needs ongoing counseling at some stage. Sputum is being cultured. Pulmonary is going to follow while in the hospital. We will notify Dr. Negrete. This is a 70-minute consultation, 50% direct patient care. Job ID: [id number]
[2019-11-30] MEDS: cefTRIAXone\\ROCEPHIN 1 GM in Sodium Chloride 0.9% 100 ML IVPB SCH (17:08)
[2019-11-30] MEDS: Mometasone 200 MCG/Formoterol 5 MCG 120 PUFF INHALER INH SCH (18:46)
[2019-11-30] MEDS: Enoxaparin Sodium 40 MG/0.4 ML SYRINGE SC SCH (20:07)
[2019-11-30] MEDS: Nicotine 14 MG PATCH TD SCH (20:09)
[2019-12-01] MEDS: methylPREDNISolone Sod Succ 40 MG VIAL IVP SCH ×3 (00:09→11:59)
[2019-12-01] MEDS: Mometasone 200 MCG/Formoterol 5 MCG 120 PUFF INHALER INH SCH ×2 (07:20→18:55)
[2019-12-01] MEDS: Amlodipine 5 MG TAB PO SCH (07:33)
[2019-12-01] MEDS: Famotidine 20 MG TAB PO SCH ×2 (07:33→21:07)
[2019-12-01] MEDS: Azithromycin 250 MG TAB PO SCH (07:33)
[2019-12-01] MEDS: guaiFENesin ER 600 MG TAB PO SCH ×2 (07:33→21:07)
[2019-12-01] MEDS: cefTRIAXone\\ROCEPHIN 1 GM in Sodium Chloride 0.9% 100 ML IVPB SCH (16:26)
--- NOTE | 2019-12-01 16:48 | PDOC.HOSPP ---
- Subjective Encounter Date: 12/01/19 Encounter Time: 09:00 Subjective: The patient is feeling much better. He is coughing less, doesn't feel like his lungs are drowning anymore. No chest pain. Patient wants to go home. Home oxygen eval showed patient dropped to 83% on ambulation - Objective Vital Signs & Weight: Vital Signs (12 hours) Temp Pulse Resp BP BP Pulse Ox 12/01/19 15:23 99.2 F 115 H 18 133/77 94 L 12/01/19 14:19 108 H 16 12/01/19 11:54 99.1 F 108 H 20 153/99 H 92 L 12/01/19 10:00 116 H 18 93 L 12/01/19 07:42 96 12/01/19 07:37 92 L 12/01/19 07:25 98.6 F 108 H 18 136/79 92 L 12/01/19 07:20 105 H 20 12/01/19 07:10 105 H 20 100 Weight Admit Weight 314 lb 4.8 oz Weight 315 lb I&O: 11/30/19 12/01/19 12/02/19 06:59 06:59 06:59 Intake Total 1502 1380 Output Total 400 1125 Balance 1102 255 Result Diagrams: 11/30/19 04:40 11/30/19 04:40 Hospitalist ROS - Review of Systems Constitutional: denies: fever, chills - Medication Medications: Active Medications Generic Name Dose Route Start Last Admin Trade Name Freq PRN Reason Stop Dose Admin Acetaminophen 650 mg 11/28/19 16:16 11/30/19 09:37 Tylenol PO 650 mg Q6H PRN Administration Fever/Mild Pain (1-3) Albuterol Sulfate 2 puff 11/28/19 19:46 11/29/19 06:05 Proventil Hfa INH 2 puff Q4H PRN Administration SOB &/or Wheezing Albuterol/Ipratropium 3 ml 11/30/19 15:00 12/01/19 14:19 Duoneb NEB 3 ml [id number] JAMES Administration Amlodipine Besylate 5 mg 12/01/19 09:00 12/01/19 07:33 Norvasc PO 5 mg DAILY JAMES Administration Azithromycin 250 mg 11/29/19 09:00 05/01/20 07:33 Zithromax PO 05/02/20 09:01 250 mg DAILY JAMES Administration Enoxaparin Sodium 40 mg 11/28/19 21:00 11/30/19 20:07 Lovenox SC 40 mg 2100 JAMES Administration Famotidine 20 mg 11/28/19 21:00 12/01/19 07:33 Pepcid PO 20 mg BID JAMES Administration Guaifenesin 600 mg 11/28/19 21:00 12/01/19 07:33 Mucinex PO 600 mg Q12HR JAMES Administration Ceftriaxone Sodium 1 gm/ 100 mls @ 200 mls/hr 11/28/19 17:00 12/01/19 16:26 Sodium Chloride IVPB 100 mls Q24HR JAMES Administration Methylprednisolone Sodium Succinate 60 mg 11/30/19 12:00 12/01/19 11:59 Solu-Medrol IVP 60 mg Q6HR JAMES Administration Mometasone Furoate/Formoterol Fumar 2 puff 11/30/19 18:30 12/01/19 07:20 Dulera 200 Mcg/5 Mcg Inhaler INH 2 puff BID-RT JAMES Administration Nicotine 14 mg 11/28/19 20:00 11/30/19 20:09 Nicoderm Patch TD Not Given Q24HR JAMES Sodium Chloride 10 ml 11/29/19 21:00 12/01/19 07:34 Flush - Normal Saline IVF 10 ml Q12HR JAMES Administration - Exam General Appearance: NAD, awake alert General - other findings: morbid obesity Eye: PERRL, anicteric sclera ENT: normocephalic atraumatic, no oropharyngeal lesions Neck: no JVD Heart: RRR, no murmur, no gallops, no rubs Respiratory: CTAB Respiratory - other findings: some scattered wheezes, diminished air entry Gastrointestinal: soft, non-tender, non-distended, normal bowel sounds Extremities: no cyanosis, no clubbing, no edema Skin: normal turgor, no lesions, no rashes Hosp A/P - Plan ECHO: EF 60-65%, diastolic dysfunction, mild MR, mild TR Chest X ray 11/19: mild patchy infiltrates in both lungs. CT chest 11/29: extensive parenchymal scarring This is 29 year old male presenting with sepsis from pneumonia #Acute hypoxic respiratory failure secondary to sepsis from pneumonia vs interstitial lung disease #Possible acute diastolic CHF #Asthma exacerbation - patient presented with fever 100.1, tachycardia, chest Xray showing mild patchy infiltrates. He was started on ceftriaxone and azithromycin day 3/. Blood cultures negative. Sputum culture pending. Flu negative. COVID negative. - continue steroids 60 mg IV q6 one more day, then wean tomorrow. Home oxygen evaluation showed patient is still hypoxic on room air on ambulation - continue duoneb q4 hours and albuterol q2 hours prn - ECHO showed EF 60-65%, mild MR, mild TR. He received some IV lasix 11/28 and - CT chest showed extensive parenchymal scarring. Pulmonary was consulted, per Dr Negrete this is from K2 use and has history of ILD. Patient advised to quit smoking. He is on nicotine patch #Hypertensive urgency - started amlodipine 5 mg daily #Possible VANESSA - he will need outpatient sleep study
--- NOTE | 2019-12-01 17:32 | PRG ---
DATE OF SERVICE: 12/01/2019 SUBJECTIVE: Mr. Valentin is in no distress. Unfortunately, still abusing street drugs and inhaling street drugs in spite of my discussion with him 2 years ago that he was damaging his lungs. OBJECTIVE: VITAL SIGNS: He is afebrile. Heart rate is 108, respiratory rate 16, oximetry is 94% on 2 L, and blood pressure 137/77. LUNGS: He is not wheezing. HEART: Regular rhythm. ABDOMEN: Soft. He can be switched to prednisone. Hopefully, he will be stable to go home tomorrow. We had a long discussion about smoking cessation. In fact, he is only 29 years old and has been in the hospital at least twice with lung-related issues. Job ID: [id number]
[2019-12-01] MEDS: Enoxaparin Sodium 40 MG/0.4 ML SYRINGE SC SCH (21:07)
[2019-12-01] MEDS: Nicotine 14 MG PATCH TD SCH (21:10)
[2019-12-02] MEDS: Mometasone 200 MCG/Formoterol 5 MCG 120 PUFF INHALER INH SCH ×2 (06:56→18:49)
[2019-12-02] MEDS: guaiFENesin ER 600 MG TAB PO SCH ×2 (08:16→20:40)
[2019-12-02] MEDS: Azithromycin 250 MG TAB PO SCH (08:17)
[2019-12-02] MEDS: Famotidine 20 MG TAB PO SCH ×2 (08:17→20:40)
[2019-12-02] MEDS: Amlodipine 5 MG TAB PO SCH (08:17)
[2019-12-02] MEDS: predniSONE 20 MG TAB PO SCH (08:17)
[2019-12-02 08:24] LABS: Hemoglobin 20.2 g/dL (14.0-18.0); Mean Corpuscular HGB CONC 30.9 g/dL (32.0-36.0); Mean Corpuscular Volume 97.1 fL (78.0-98.0); Mean Platelet Volume 8.6 fL (7.4-10.4); Platelet Count 152 thou/uL (130-400); RBC Distribution Width 14.3 % (11.5-14.5); Red Blood Cell (RBC) Count 6.74 mill/uL (4.70-6.10); White Blood Cell (WBC) Count 11.7 thou/uL (4.8-10.8)
[2019-12-02 08:42] LABS: Lymphocytes 21 % (21-51); MDiff Complete? YES; Monocytes 2 % (0-10); Neutrophil 75 % (42-75); Platelet Morphology Comment Appears Adequate; Reactive Lymphocytes 2 % (0-10)
--- NOTE | 2019-12-02 12:15 | PRG ---
DATE OF SERVICE: 12/02/2019 Elliott Valentin has no complaints. He wants to go home. His oximetry is 93% on room air. He is afebrile. Heart rate is 107, blood pressure 151/95. Unfortunately, even with a positive fluid balance, his hematocrit has not come down. He needs a phlebotomy with a goal to get him down around or below 55 of hematocrit. I have explained that he has to have a sleep study. He has two daughters at home, and I have explained to him that it is imperative that he tries to live as long as possible to take care of his daughters. He has a short time left on this earth if he continues on his current path. He says he understands. Job ID: [id number]
[2019-12-02] MEDS: cefTRIAXone\\ROCEPHIN 1 GM in Sodium Chloride 0.9% 100 ML IVPB SCH (16:22)
[2019-12-02] MEDS: Enoxaparin Sodium 40 MG/0.4 ML SYRINGE SC SCH (20:40)
[2019-12-02] MEDS: Nicotine 14 MG PATCH TD SCH (20:41)
--- NOTE | 2019-12-02 21:04 | PDOC.HOSPP ---
- Subjective Encounter Date: 12/02/19 Subjective: The patient stated that he is feeling better today. He was able to walk inside the room without significant shortness of breath. - Objective Vital Signs & Weight: Vital Signs (12 hours) Temp Pulse Resp BP BP Pulse Ox 12/02/19 18:51 116 H 16 95 12/02/19 18:49 116 H 18 95 12/02/19 15:07 98 F 119 H 18 122/70 97 12/02/19 14:47 105 H 20 12/02/19 11:09 98 F 107 H 16 151/95 H 93 L 12/02/19 10:30 100 24 H Weight Admit Weight 314 lb 4.8 oz Weight 317 lb 12.8 oz I&O: 12/01/19 12/02/19 12/03/19 06:59 06:59 06:59 Intake Total 1380 1540 1700 Output Total 1125 1000 Balance 255 1540 700 Result Diagrams: 12/02/19 08:12 11/30/19 04:40 Hospitalist ROS - Medication Medications: Active Medications Generic Name Dose Route Start Last Admin Trade Name Freq PRN Reason Stop Dose Admin Acetaminophen 650 mg 11/28/19 16:16 11/30/19 09:37 Tylenol PO 650 mg Q6H PRN Administration Fever/Mild Pain (1-3) Albuterol Sulfate 2 puff 11/28/19 19:46 11/29/19 06:05 Proventil Hfa INH 2 puff Q4H PRN Administration SOB &/or Wheezing Albuterol/Ipratropium 3 ml 11/30/19 15:00 12/02/19 18:51 Duoneb NEB 3 ml [id number] JAMES Administration Amlodipine Besylate 5 mg 12/01/19 09:00 12/02/19 08:17 Norvasc PO 5 mg DAILY JAMES Administration Enoxaparin Sodium 40 mg 11/28/19 21:00 12/01/19 21:07 Lovenox SC 40 mg 2100 JAMES Administration Famotidine 20 mg 11/28/19 21:00 12/02/19 08:17 Pepcid PO 20 mg BID JAMES Administration Guaifenesin 600 mg 11/28/19 21:00 12/02/19 08:16 Mucinex PO 600 mg Q12HR JAMES Administration Ceftriaxone Sodium 1 gm/ 100 mls @ 200 mls/hr 11/28/19 17:00 12/02/19 16:22 Sodium Chloride IVPB 100 mls Q24HR JAMES Administration Mometasone Furoate/Formoterol Fumar 2 puff 11/30/19 18:30 12/02/19 18:49 Dulera 200 Mcg/5 Mcg Inhaler INH 2 puff BID-RT JAMES Administration Nicotine 14 mg 11/28/19 20:00 12/01/19 21:10 Nicoderm Patch TD Not Given Q24HR JAMES Prednisone 40 mg 12/02/19 08:00 12/02/19 08:17 Prednisone PO 40 mg QAM-WM JAMES Administration Sodium Chloride 10 ml 11/29/19 21:00 12/02/19 08:17 Flush - Normal Saline IVF 10 ml Q12HR JAMES Administration - Exam General Appearance: awake alert ENT: normocephalic atraumatic Neck: supple Heart: RRR Respiratory: normal chest expansion, no tachypnea Gastrointestinal: soft, non-tender, non-distended Neurological: cranial nerve grossly intact, no focal deficits Hosp A/P (1) Acute respiratory failure with hypoxia and hypercapnia Code(s): J96.01 - ACUTE RESPIRATORY FAILURE WITH HYPOXIA; J96.02 - ACUTE RESPIRATORY FAILURE WITH HYPERCAPNIA Status: Acute (2) VANESSA (obstructive sleep apnea) Code(s): G47.33 - OBSTRUCTIVE SLEEP APNEA (ADULT) (PEDIATRIC) Status: Acute (3) Polycythemia Code(s): D75.1 - SECONDARY POLYCYTHEMIA Status: Acute (4) 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 Phlebotomy plan for polycythemia due to chronic hypoxia. Goal of hematocrit is less than 55. The patient will require home O2, however, he is uninsured. Will ask case management to assist on Wednesday.
[2019-12-03 05:18] LABS: Hemoglobin 18.5 g/dL (14.0-18.0); Lymphocytes 37 % (21-51); MDiff Complete? YES; Mean Corpuscular Hemoglobin 30.3 pg (27.0-31.0); Mean Corpuscular Volume 97.8 fL (78.0-98.0); Mean Platelet Volume 8.5 fL (7.4-10.4); Monocytes 11 % (0-10); Neutrophil 52 % (42-75); Platelet Count 156 thou/uL (130-400); Platelet Morphology Comment Appears Adequate; Red Blood Cell (RBC) Count 6.13 mill/uL (4.70-6.10); White Blood Cell (WBC) Count 9.8 thou/uL (4.8-10.8)
[2019-12-03 05:20] LABS: Calc. Creatinine Clearance 279 mL/min (70-130); Calcium 8.5 mg/dL (7.8-10.44); Carbon Dioxide 27 mmol/L (22-29); Chloride 97 mmol/L (98-107); Estimated GFR-MDRD Greater than 90; Glucose 83 mg/dL (70-105); Potassium 3.8 mmol/L (3.5-5.1); Sodium 134 mmol/L (136-145)
[2019-12-03 05:32] LABS: Anion Gap 14 mmol/L (10-20)
[2019-12-03 05:43] LABS: BUN (Urea Nitrogen) 6 mg/dL (8.9-20.6)
[2019-12-03] MEDS: Mometasone 200 MCG/Formoterol 5 MCG 120 PUFF INHALER INH SCH (06:58)
[2019-12-03] MEDS: Famotidine 20 MG TAB PO SCH (08:19)
[2019-12-03] MEDS: guaiFENesin ER 600 MG TAB PO SCH (08:20)
[2019-12-03] MEDS: predniSONE 20 MG TAB PO SCH (08:20)
[2019-12-03] MEDS: Amlodipine 5 MG TAB PO SCH (08:20)
[2019-12-03 11:48] VITALS: BP 143/74; TEMP 98.3
--- NOTE | 2019-12-03 14:28 | DIS ---
DATE OF ADMISSION: 11/28/2019 DATE OF DISCHARGE: 12/03/2019 DISCHARGE DIAGNOSES: 1. Acute respiratory failure with hypoxia. 2. Chronic interstitial lung disease due to inhalational injury of vapes and chemical fumes. 3. Polycythemia secondary to hypoxia. 4. Morbid obesity. 5. Obstructive sleep apnea. DISCHARGE MEDICATIONS: 1. Prednisone 20 mg orally daily for 7 days. 2. Tylenol 325 mg orally q.4 hours as needed for pain. 3. Albuterol sulfate nebulized 2.5 mg/3 mL q.8 hours as needed for shortness of breath. 4. Advair 250/50 one inhalation twice daily. HISTORY OF PRESENT ILLNESS AND HOSPITAL COURSE: The patient is a 29-year-old male with past medical history of asthma, tobacco abuse, and K2 marijuana abuse, who presented to the hospital with complaints of shortness of breath and progressive worsening cough. His shortness of breath has progressively worsened to the extent that minimal activity causes severe distress to the patient. His symptoms are especially noticeable when he lays down. He tried to take his friend's fluid pill to help his breathing without improvement. The patient developed a fever and his girlfriend urge him to come to the emergency department. He was found to be hypoxic with oxygen saturation of 85% on room air. Chest x-ray was obtained and did not show any acute infiltrates. He was subsequently admitted to the hospital for management of hypoxia due to asthma and possible pneumonia. He was sent for COVID-19, which was negative. His hemoglobin level and hematocrit levels were found to be extremely elevated at 21 and 7.7 respectively. Pulmonary Service consulted and the patient was managed with nebulizer treatments, corticosteroids, and antibiotics, which showed gradual improvement in his symptoms, but he remained hypoxic. The patient subsequently underwent a therapeutic phlebotomy to reduce his hematocrit level to a target of 55 or less. His first phlebotomy decreases his hematocrit rate level from 65 to 59, and he underwent a second one prior to discharge. Subsequently, his oxygenation has improved and he was able to ambulate through the mane without significant shortness of breath. The patient was counseled against cigarette smoking and marijuana use. Outpatient followup with PCP and Pulmonology recommended. Job ID: [id number]
--- NOTE | 2019-12-03 21:03 | PRG ---
DATE OF SERVICE: 12/03/2019 Elliott Valentin had no complaints. He is still on room air. His vital signs have been stable. His hematocrit had fallen to 59. His lungs are clear. I have recommended phlebotomy of another 500 mL. He says he is getting insurance. He should contact me once he has insurance, so we can set him up for a sleep study. He was again instructed not to smoke cigarettes or use any old drugs given his interstitial lung changes. Job ID: [id number]
--- NOTE | 2019-12-05 05:49 | PQF ---
Barbie III, Elliott GAVIN Aguilar [id number] CLINICAL DOCUMENTATION CLARIFICATION FORM: POST DISCHARGE Addendum to original discharge summary date: ____ Late entry note date: __ DATE: 12/05/2019 ATTN: Gavin Ross Please exercise your independent, professional judgment in responding to the clarification form. Clinical indicators are provided on the bottom of this form for your review In your clinical opinion based on clinical findings below, can youplease identify the etiology of Acute Respiratory Failure if due to: Please check appropriate box(s): [ ] Sepsis with Pneumonia [ ] Marijuana use [ > ] Inhalation of vapors and chemical fumes [ ] Acute Diastolic Failure [ ] Other condition, CLINICAL INDICATORS - SIGNS / SYMPTOMS / LABS / RESULTS AND LOCATION IN MR Laboratory WBC 6.4, Hgb 21.1, hct 67.7, BNP 55.1, Troponin 0.022, 0.013 Blood culture 11/27 No growth after 5 days Sputum culture 11/29 Moderate normal Respiratory floral present Viral signs 11/27 BP 160/10, Temp 100.8, Pulse 120, Resp 21 O2 sat 85% Chest Xray 11/27 Impression: Lungs are expanded with mild patchy infiltrates in lower brice field H&P p1 11/27 Dr Gomez pt states that he started developing shortness of breath a few days ago H&P p1 11/27 Dr Gomez It was worst at rest and on exertion and especially while laying down H&P p1 11/27 Dr Gomez he developed a fever to 101 H&P p3 11/27 Dr Gomez Sepsis likely pneumonia H&P p3 11/27 Dr Gomez Acute hypoxic respiratory failure secondary to pneumonia and asthma exacerbation PN p4 11/29 Possible Acute Diastolic CHF PN p5 11/30 Acute hypoxic respiratory failure secondary to sepsis from Pna vs interstitial lung disease Consult p1 11/29 Dr Arnold He is presently unemployed and apparently use K1 marijuana at day of his admission Discharge summary p1 12/02 Chronic interstitial lung disease due to inhalational injury of vapes and chemical fumes RISK FACTORS / RESULTS AND LOCATION IN MR H&P p1 11/27 Asthma H&P p1 11/27 Tobacco abuse H&P p2 11/27 Polycythemia H&P p2 11/27 Smoker H&P p2 11/27 Morbid obesity PN p4 11/29 VANESSA PN p6 11/30 HTN urgency Consult p2 11/29 COPD exacerbation TREATMENTS / RESULTS AND LOCATION IN MR OCT 03 IV Ceftriaxone 1gm OCT 03 Zithromax 250 mg oral OCT 03 Proventil Hfa 2puff inhaler Oct 03 IVF NS 1L OCT 03 IV Lasic 20 mg OCT 03 Duoneb 3ml neb OCT 03 IV Solu Medrol 40mg OCT 04 Norvasc 5mg oral Blood culture 11/27 Sputum culture 11/29 Chest Xray 11/27 Respiratory consult 11/29 Dr Arnold, [facility] Discharge summary 12/01 Councelled to stop smoking and marijuana use (This form is maintained as a part of the permanent medical record) 2014 [employer], [employer]. All Rights Reserved [email or web address]
--- NOTE | 2019-12-05 05:50 | PQF ---
Barbie VELEZ Elliott GAVIN Aguilar [id number] CLINICAL DOCUMENTATION CLARIFICATION FORM: POST DISCHARGE Addendum to original discharge summary date: ____ Late entry note date: __ DATE: 12/05/2019 ATTN: Gavin Ross Please exercise your independent, professional judgment in responding to the clarification form. Clinical indicators are provided on the bottom of this form for your review Please check appropriate box(s) to clarify if the following diagnosis has been ruled in or ruled out: Sepsis [ ] Ruled in diagnosis [ ] Continue to treat [ ] Resolved [ ] Ruled out diagnosis [ ] Cannot rule out diagnosis [ > ] Other diagnosis _Exacerbation of interstitial lung disease due to inhalation injury [ ] Unable to determine For continuity of documentation, please document condition throughout progress notes and discharge summary. Thank You. CLINICAL INDICATORS - SIGNS / SYMPTOMS / LABS Laboratory WBC 6.4; 7.0; 11.7, Plt count 140, Band 1, Neutrophils 46 Blood culture 11/27 No growth in 5 days Vital signs 11/27 BP 160/101, Pulse 120, Temp 100.8, Resp 25 O2 sat 85% Chest X-day 11/27 Impression: The lungs are expanded with mild patchy infiltrates in the lower lung turner H&P p3 11/27 Dr Gomez Sepsis likely secondary to Pneumonia H&P 11/27 Dr Gomez Acute hypoxic respiratory failure secondary to Pneumonia and Asthma exacerbation PN p5 11/28 Acute hypoxic respiratory failure secondary to sepsis from pneumonia Discharge summary p1 12/02 Chronic interstitial lung disease due to inhalational injury of vapes and chemical fumes RISK FACTORS H&P p1 11/27 Asthma H&P p1 11/27 Tobacco abuse H&P 11/27 Morbid Obesity H&P 11/27 Polycythemia H&P 11/27 Pneumonia Consult p2 11/29 COPD Consult 11/29 -HTN TREATMENTS OCT 03 IV Ceftriaxone 1gm OCT 03 Proventil Hfa 2puff inhaler OCT 03 IV Solumedrol 40mg OCT 03 Zithromax 250 mg oral OCT 03 Duoneb 3ml neb Blood culture 11/27 Chest X-ray 11/27 Respiratory Panel 11/27 Oxygen 5L Pulmonary consult 11/29 Dr Arnold, Ivan H&P p3 11/27 IVF (This form is maintained as a part of the permanent medical record) 2014 [employer]. All Rights Reserved [email or web address]
== END 2019-12-03 13:37 | disposition home or self-care (01) | DRG 189 ==
LOC: OBSVTOIN 12:49 → CDU 12:49 → 2SW 13:49 → 2NO 11-30 12:06 → 2SW 11-30 13:02 → 2NO 11-30 14:07
PROVIDERS: ADMIT Internal Medicine; ATTEND Internal Medicine
PROC: 8E0ZXY6 Isolation (ICD-10-PCS; principal; 2019-11-28)
DX: J96.01 Acute respiratory failure with hypoxia (principal); Z68.43 Body mass index [BMI] 50.0-59.9, adult; J44.1 Chronic obstructive pulmonary disease with (acute) exacerbation; J45.901 Unspecified asthma with (acute) exacerbation; Z79.51 Long term (current) use of inhaled steroids; J96.02 Acute respiratory failure with hypercapnia; Z20.828 Contact with and (suspected) exposure to other viral communicable diseases; D75.1 Secondary polycythemia; E66.01 Morbid (severe) obesity due to excess calories; F17.298 Nicotine dependence, other tobacco product, with other nicotine-induced disorders; F12.10 Cannabis abuse, uncomplicated; G47.33 Obstructive sleep apnea (adult) (pediatric); I10 Essential (primary) hypertension; I16.0 Hypertensive urgency; I08.1 Rheumatic disorders of both mitral and tricuspid valves; T59.91XA Toxic effect of unspecified gases, fumes and vapors, accidental (unintentional), initial encounter; J68.4 Chronic respiratory conditions due to chemicals, gases, fumes and vapors; Z28.21 Immunization not carried out because of patient refusal; Z71.6 Tobacco abuse counseling; Z71.51 Drug abuse counseling and surveillance of drug abuser; Z79.899 Other long term (current) drug therapy
CPT/HCPCS: 36415; 71045; 71250; 80048; 83880; 84484; 85007; 85025; 85027; 87070; 87205; 93306; 94640; 94664; 99195; J0696; J1650; J1940; J2920; J3490; J7512; J7620

== ENCOUNTER 2020-02-06 09:07 | Outpatient (CLI) | payer OTHER ==
--- NOTE | 2020-02-06 09:30 | RAD ---
XR Chest Pa Lat STANDARD HISTORY: Dyspnea COMPARISON: 11/29/2019 FINDINGS: The heart size is normal. The lungs are well expanded without focal areas of consolidation, pneumothorax or pleural effusions. Chronic changes are again seen.. IMPRESSION: No radiographic evidence of acute cardiopulmonary process.
== END 2020-02-06 09:08 | disposition home or self-care (01) ==
LOC: BICRAD 09:07
PROVIDERS: ATTEND Internal Medicine Critical Care Medicine
DX: R06.00 Dyspnea, unspecified (principal)
CPT/HCPCS: 71046

== ENCOUNTER 2020-03-31 18:33 | Inpatient (IN) | payer OTHER, SELFPAY ==
[2020-03-31 19:01] LABS: Actual Bicarbonate (HCO3a) 34.4 mEq/L (22-28); Analyzer IN Cardio ER; Base Excess (BEa) -2.4 mEq/L (-2.0 to +3.0); Calcium, Ionized (arterial) 1.21 mmol/L (1.12-1.30); Carboxyhemoglobin (COHb) 12.1 gm% (0.0-3.0); Hemoglobin (Hb) 18.7 g/dL (14.0-18.0); O2 Tension (PaO2), arterial 101.9 mmHg (80.0-100.0)
[2020-03-31] MEDS ORDERED: Ketamine 50 MG/ML (10ML VIAL) ONE (19:07)
[2020-03-31] MEDS ORDERED: Albuterol Sulfate 2.5 mg/3 ml Neb ONE (19:30)
[2020-03-31] MEDS ORDERED: Albuterol Sulfate 2.5 mg/0.5 ml Neb ONE (19:30)
--- NOTE | 2020-03-31 19:53 | RAD ---
PORTABLE CHEST: Date: 03-31-2020 PROVIDED CLINICAL HISTORY: Hypoxia FINDINGS/IMPRESSION: Comparison 03-31-2020 at 3:[address] angiogram performed prior to this examination. Evaluation is limited by patient body habitus. Bibasilar lung consolidation is redemonstrated. POS: SARMAD
[2020-03-31 20:00] LABS: Actual Bicarbonate (HCO3a) 37.8 mEq/L (22-28); Analyzer IN Cardio ER; Base Excess (BEa) 1.6 mEq/L (-2.0 to +3.0); Calcium, Ionized (arterial) 1.21 mmol/L (1.12-1.30); Carboxyhemoglobin (COHb) 11.4 gm% (0.0-3.0); Hemoglobin (Hb) 18.5 g/dL (14.0-18.0); O2 Tension (PaO2), arterial 63.3 mmHg (80.0-100.0); Potassium - ABG Lab 4.42 mmol/L (3.70-5.30)
[2020-03-31 20:13] LABS: CO2 Tension 134.8 mmHg (35.0-45.0); Puncture Site RRA; pH, Arterial 7.03 (7.35-7.45)
[2020-03-31 20:14] LABS: CO2 Tension 128.8 mmHg (35.0-45.0); Puncture Site RRA; pH, Arterial 7.09 (7.35-7.45)
[2020-03-31] MEDS ORDERED: Acetaminophen 325 MG TAB PO PRN (20:25)
[2020-03-31] MEDS ORDERED: Calcium Carbonate 500 MG ChewTAB PO PRN (20:25)
[2020-03-31] MEDS ORDERED: Ondansetron PF 4 MG/2 ML Vial IVP PRN (20:25)
[2020-03-31] MEDS ORDERED: HYDROcodone/Acetaminophen 5/325 mg Tablet PO PRN (20:25)
[2020-03-31] MEDS ORDERED: Guaifenesin DM 100-10/5 ML UDCUP PO PRN (20:25)
[2020-03-31] MEDS ORDERED: Acetaminophen 650 MG Suppository PR PRN (20:25)
[2020-03-31] MEDS ORDERED: Ondansetron ODT 4 MG TAB PO PRN (20:25)
[2020-03-31 20:27] LABS: Troponin I 0.258 ng/mL (< 0.028)
[2020-03-31] MEDS ORDERED: Propofol 1,000 MG/100 ML VIAL IV ONE (20:36)
[2020-03-31] MEDS ORDERED: Rocuronium Bromide 10 MG/ML (10ML VIAL) ONE (20:36)
--- NOTE | 2020-03-31 20:39 | PDOC.HHP ---
Hospitalist HPI - History of Present Illness History of Present Illness: most of the history obtain from ED transfer records. during my evaluation patient was confused, no family members were present at the moment of the evaluation. Case of an 29y/o male with pmhx of chronic interstitial lung disease secondary to vape use, chf bronchial astham and morbid obesity who comes to hospital transfer from [facility] ED due to respiratory failure. apparently patient was on his usual state of health until today when he began with dyspnea. Myeshat refers had a hospitalization 1 month ago with similar symptoms. at arrival to the ED patient was noted to be hypoxic in the 50%s for wich supplemental oxygen was started and patient was transfer to this institution. at arrival patient was noted to be confused and still hypoxic. abgs reveal an hypoxic and hypercapnic respiratory failure. bipap trial was started, patient did not improved as expected and continued to be confused and removing his bipap for which the decision to start MV was done. Hospitalist ROS - Review of Systems ROS unobtainable: due to endotracheal tube Hospitalist History - Past Medical History Source: patient - Past Surgical History Past Surgical History: reports: Tonsillectomy Other Surgical History: unable to asses due to MV / mental status - Family History Other Family History: unable to asses due to MV / mental status - Social History Smoking Status: Current every day smoker Alcohol: reports: None Drugs: reports: none - Exam General - other findings: morbid obese Eye: PERRL, anicteric sclera ENT: normocephalic atraumatic, no oropharyngeal lesions Neck: supple, symmetric, no JVD Heart: no murmur, no gallops, no rubs, normal peripheral pulses Heart - other findings: tachycardia Respiratory: wheezes Respiratory - other findings: decreased lung sounds Gastrointestinal: soft, non-tender, non-distended Extremities: no cyanosis, no clubbing, no edema Skin: normal turgor, no lesions, no rashes Neurological: cranial nerve grossly intact, normal sensation to touch Musculoskeletal: normal tone, normal strength, no muscle wasting Psychiatric: not oriented, somnolent, lethargic Hospitalist Results - Labs Lab results: ABG pH 7.09 (7.35-7.45) L* 03/31/20 19:57 ABG pCO2 128.8 mmHg (35.0-45.0) H* 08/30/20 19:57 ABG pO2 63.3 mmHg (80.0-100.0) L 03/31/20 19:57 Troponin I 0.258 ng/mL (< 0.028) H 03/31/20 19:52 Hospitalist H&P A/P - Problem (1) Acute on chronic respiratory failure with hypoxia and hypercapnia Code(s): J96.21 - ACUTE AND CHRONIC RESPIRATORY FAILURE WITH HYPOXIA; J96.22 - ACUTE AND CHRONIC RESPIRATORY FAILURE WITH HYPERCAPNIA Status: Acute (2) COVID-19 Code(s): U07.1 - COVID-19 Status: Acute (3) Pneumonia Code(s): J18.9 - PNEUMONIA, UNSPECIFIED ORGANISM Status: Acute (4) 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 Code(s): J68.4 - CHRONIC RESP COND DUE TO CHEMICALS, GASES, FUMES AND VAPORS Status: Acute (5) VANESSA (obstructive sleep apnea) Code(s): G47.33 - OBSTRUCTIVE SLEEP APNEA (ADULT) (PEDIATRIC) Status: Acute (6) Polycythemia Code(s): D75.1 - SECONDARY POLYCYTHEMIA Status: Acute (7) Hypertension Code(s): I10 - ESSENTIAL (PRIMARY) HYPERTENSION Status: Chronic Qualifiers: Hypertension type: essential hypertension Qualified Code(s): I10 - Essential (primary) hypertension (8) Morbid obesity Code(s): E66.01 - MORBID (SEVERE) OBESITY DUE TO EXCESS CALORIES Status: Chronic - Plan Plan: 29y/o male with the stated pmhx who present with acute on chronic respiratory failure acute on chronic respiratory failure hypoxic and hypercapnic - abgs consistent with hypoxic and hypercapnic respiratory failure - on mechanical ventilation - f/u abgs - exercise scientist consulted - chest ct consistent with b/l pnuemona / covid 19 - sedation protocol pneumonia / covid 19 / copd exacerbation - starting rocephin + azithromycin - chest ct consistent with b/l pnuemona / covid 19 - starting steroid 60 q 6hrs. pt w hx of copd and wheezing on physical exam - f/u inflammation markers - f/u procalcitonin elevated troponins - elevated troponin initial 0.56 increased to .258, will continue to trend - likely secondary to hypoxia - hx of chf - cardiology evaluation
--- NOTE | 2020-03-31 21:38 | RAD ---
PORTABLE CHEST: Date: 03-31-2020 PROVIDED CLINICAL HISTORY: Hypoxia FINDINGS: Interval placement of endotracheal tube, the tip of which projects proximal to the thoracic inlet by at least 5.5 cm. Interval placement of an enteric catheter, the tip of which presumably overlies the left upper quadrant though evaluation is limited by patient body habitus. Worsening bilateral lung co nsolidation. IMPRESSION: 1. Endotracheal tube positioning as above. 2. Worsening bilateral lung consolidation. POS: SARMAD
[2020-03-31 21:59] LABS: Actual Bicarbonate (HCO3a) 29.7 mEq/L (22-28); Analyzer IN Cardio ER; Calcium, Ionized (arterial) 1.19 mmol/L (1.12-1.30); Carboxyhemoglobin (COHb) 8.9 gm% (0.0-3.0); Hemoglobin (Hb) 19.5 g/dL (14.0-18.0); O2 Tension (PaO2), arterial 99.4 mmHg (80.0-100.0); Potassium - ABG Lab 4.29 mmol/L (3.70-5.30); pH, Arterial 7.26 (7.35-7.45)
[2020-03-31 22:03] LABS: ALV-art Gradient 244.025 (0-20); CO2 Tension 67.5 mmHg (35.0-45.0); Puncture Site LRA
[2020-03-31 22:03] LABS: Troponin I 0.246 ng/mL (< 0.028)
[2020-03-31 22:27] LABS: SARS-CoV-2 NAA Rapid Test Not Detected (NotDetected)
[2020-03-31] MEDS ORDERED: Fentanyl BOLUS 250 ML IVPB PRN (23:35)
[2020-03-31] MEDS ORDERED: Morphine 2 MG/ML VIAL SLOW IVP PRN (23:35)
[2020-03-31] MEDS ORDERED: Propofol BOLUS 1,000 MG/100 ML VIAL IV PRN (23:35)
[2020-03-31 23:44] VITALS: BMI 45.8
[2020-04-01] MEDS: Propofol 1,000 MG/100 ML VIAL IV PRN ×9 (00:53→23:26)
[2020-04-01] MEDS: methylPREDNISolone Sod Succ 40 MG VIAL IVP SCH ×5 (00:53→23:26)
[2020-04-01 01:11] LABS: Troponin I 0.253 ng/mL (< 0.028)
[2020-04-01] MEDS: Lorazepam 2 MG/ML VIAL SLOW IVP PRN ×3 (01:24→15:26)
[2020-04-01 04:53] LABS: ALT (SGPT) 32 U/L (8-55); AST (SGOT) 28 U/L (5-34); Albumin 4.2 g/dL (3.5-5.0); Alkaline Phosphatase 83 U/L (40-110); Anion Gap 14 mmol/L (10-20); BUN (Urea Nitrogen) 13 mg/dL (8.9-20.6); Bilirubin, Total 1.1 mg/dL (0.2-1.2); Calc. Creatinine Clearance 209 mL/min (70-130); Calcium 9.8 mg/dL (7.8-10.44); Carbon Dioxide 31 mmol/L (22-29); Chloride 98 mmol/L (98-107); Estimated GFR-MDRD Greater than 90; Globulin 3.6 g/dL (2.4-3.5); Glucose 151 mg/dL (70-105); Potassium 4.2 mmol/L (3.5-5.1); Protein, Total 7.8 g/dL (6.0-8.3); Sodium 139 mmol/L (136-145)
[2020-04-01 05:02] LABS: Band 7 % (5-11); Hemoglobin 17.9 g/dL (14.0-18.0); Lymphocytes 8 % (21-51); MDiff Complete? YES; Mean Corpuscular HGB CONC 33.3 g/dL (32.0-36.0); Mean Corpuscular Hemoglobin 30.3 pg (27.0-31.0); Mean Corpuscular Volume 91.1 fL (78.0-98.0); Mean Platelet Volume 8.8 fL (7.4-10.4); Monocytes 3 % (0-10); Neutrophil 82 % (42-75); Nucleated RBC 1 % (0); Platelet Count 213 thou/uL (130-400); RBC Distribution Width 16.4 % (11.5-14.5); Red Blood Cell (RBC) Count 5.92 mill/uL (4.70-6.10); White Blood Cell (WBC) Count 12.7 thou/uL (4.8-10.8)
--- NOTE | 2020-04-01 08:54 | PDOC.HOSPP ---
- Subjective Encounter Date: 04/01/20 Encounter Time: 08:53 Subjective: alert, intubated, wants ET tube out - Objective Vital Signs & Weight: Vital Signs (12 hours) Temp Pulse Resp BP Pulse Ox 04/01/20 06:00 24 H 04/01/20 04:00 98.5 F 24 H 04/01/20 02:21 94 127/86 04/01/20 02:00 24 H 04/01/20 00:00 24 H 03/31/20 23:15 24 H 98 03/31/20 23:00 98.6 F 03/31/20 22:40 131 H 130/103 H Weight Weight 319 lb 7.197 oz Most Recent Monitor Data Heart Rate from ECG 91 NIBP 136/95 NIBP BP-Mean 108 Respiration from ECG 24 SpO2 96 I&O: 03/31/20 04/01/20 04/02/20 06:59 06:59 06:59 Intake Total 332 Output Total 420 Balance -88 Result Diagrams: 04/01/20 03:13 04/01/20 03:13 Hospitalist ROS - Medication Medications: Active Medications Generic Name Dose Route Start Last Admin Trade Name Freq PRN Reason Stop Dose Admin Lorazepam 2 mg 03/31/20 23:35 04/01/20 01:24 Ativan SLOW IVP 04/30/20 23:35 2 mg Q1H PRN Administration Breakthrough agitation Methylprednisolone Sodium Succinate 60 mg 03/31/20 23:59 04/01/20 05:54 Solu-Medrol IVP 60 mg Q6HR JAMES Administration Propofol 1,000 mg 03/31/20 23:35 04/01/20 08:24 Diprivan IV 04/30/20 23:35 1,000 mg INF PRN Administration TO ACHIEVE GOAL RASS Protocol - Exam General Appearance: awake alert Neck: no JVD Heart: RRR, no murmur Respiratory - other findings: coarse with rhonchi Gastrointestinal: soft, non-tender, normal bowel sounds Extremities: no edema Hosp A/P (1) Acute on chronic respiratory failure with hypoxia and hypercapnia Code(s): J96.21 - ACUTE AND CHRONIC RESPIRATORY FAILURE WITH HYPOXIA; J96.22 - ACUTE AND CHRONIC RESPIRATORY FAILURE WITH HYPERCAPNIA Status: Acute (2) Pneumonia Code(s): J18.9 - PNEUMONIA, UNSPECIFIED ORGANISM Status: Acute Qualifiers: Pneumonia type: due to unspecified organism Laterality: bilateral Lung location: lower lobe of lung Qualified Code(s): J18.9 - Pneumonia, unspecified organism (3) 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
[2020-04-01] MEDS: Enoxaparin Sodium 40 MG/0.4 ML SYRINGE SC SCH (09:33)
[2020-04-01 11:42] LABS: Amphetamine Not Detected (NotDetected); Barbiturates Screen Not Detected (NotDetected); Benzodiazepine Screen Detected (NotDetected); Cocaine Metabolite Screen Not Detected (NotDetected); Medtox Control Line Valid? VALID (VALID); Medtox Reader # READER 1; Methadone Not Detected (NotDetected); Methamphetamine Not Detected (NotDetected); Opiate Screen Not Detected (NotDetected); Oxycodone Screen Not Detected (NotDetected); Phencyclidine (PCP) Not Detected (NotDetected); THC/Cannabinoid Screen Not Detected (NotDetected); Tricyclic Screen Not Detected (NotDetected)
[2020-04-01] MEDS: fentaNYL Citrate/PF 2,000 MCG in Sodium Chloride 0.9% 60 ML IV SCH ×2 (13:31→23:26)
--- NOTE | 2020-04-01 14:01 | CON ---
DATE OF CONSULTATION: REASON FOR CONSULTATION: Elevated troponin. HISTORY OF PRESENT ILLNESS: Mr. Valentin is unfortunate 29-year-old gentleman with previous history of COPD and has been followed by Pulmonary in the past. He was last seen by Dr. Ivan Arnold on 11/30/2019. He also has morbid obesity with previous chronic lung disease and asthma. He is currently intubated and sedated, so the history is obtained from the chart. Mr. Valentin came in yesterday complaining of shortness of breath. He was found to be confused. He was not able to maintain airway and was subsequently intubated. He was hypoxic with O2 saturation in the 50s. He also was found to be hypercapnic. PAST MEDICAL HISTORY: 1. As described above including chronic interstitial lung disease from a vape use. 2. Last echo Doppler dated 11/30/2019 with LVEF of 60% to 69% with mild concentric LVH. REVIEW OF SYSTEMS: Unobtainable. PHYSICAL EXAMINATION: GENERAL: He is currently intubated and sedated and morbidly obese. VITAL SIGNS: Blood pressure 135/95, pulse 87, temperature afebrile. NEUROLOGIC: The patient is alert and oriented x3 with no focal neurologic deficits. HEENT: Sclerae without icterus. Mouth has moist mucous membranes with normal pallor. NECK: No JVD. Carotid upstroke brisk. No bruits bilaterally. LUNGS: Clear to auscultation with unlabored respirations. BACK: No scoliosis or kyphosis. CARDIAC: Regular rate and rhythm with normal S1 and S2. No S3 or S4 noted. No significant rubs, murmurs, thrills, or gallops noted throughout the precordium. PMI is not displaced. There is no parasternal heave. ABDOMEN: Soft, nontender, nondistended. No peritoneal signs present. No hepatosplenomegaly. No abnormal striae. EXTREMITIES: 2+ femoral and 2+ dorsalis pedis pulses. No cyanosis, clubbing, or edema. SKIN: No gross abnormalities. PERTINENT LABORATORY DATA: Creatinine 1.06 with a peak troponin of 0.253. EKG shows normal sinus rhythm, ST wave changes suggesting ischemia. IMPRESSION: 1. Elevated troponin. 2. Respiratory failure. 3. Interstitial lung disease. 4. Asthma. 5. Morbid obesity. RECOMMENDATIONS: 1. Mr. Valentin's status is currently stable. He is currently intubated and sedated. He was recently admitted due to hypercapnic failure with an initial pCO2 of 134 and a pH of 7.03. 2. Elevated troponin likely secondary to demand ischemia. His elevated troponin is likely due to recent hypoxia with underlying LVH. We will continue to monitor closely. We would recommend repeating his echo to assess LVEF. Otherwise, we will continue to monitor closely. Job ID: [id number]
[2020-04-01] MEDS: cefTRIAXone\\ROCEPHIN 2 GM in Sodium Chloride 0.9% 100 ML IVPB SCH ×2 (14:49→16:37)
[2020-04-01] MEDS: Azithromycin 500 MG in Sodium Chloride 0.9% 250 ML 250 ML IVPB SCH (17:17)
[2020-04-02] MEDS: Propofol 1,000 MG/100 ML VIAL IV PRN ×3 (01:56→05:50)
--- NOTE | 2020-04-02 05:41 | CON ---
DATE OF CONSULTATION: 04/01/2020 HISTORY OF PRESENT ILLNESS: Mr. Valentin is a 29-year-old male, who has severe sleep apnea. He has had significant nocturnal hypoxemia for quite some time and has required therapeutic recently. 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 It was explained to him last time I saw him in the office, it was imperative that he obtain and be compliant with his device. His index is 112, which makes his sleep apnea very severe. We recommended auto-BiLevel with a maximum inspiratory pressure 25, minimum expiratory pressure of 15, maximum pressure support 8, minimum pressure support of 4 with oxygen bled in at 2 L a minute. Again, it is unclear if this was ever picked up. He also is felt to have chronic interstitial lung disease secondary to inhaled drug use. My last conversation with him in the office several weeks ago involved me explaining to him how imperative it was that he not use drugs anymore. He was awake and actually dialed my office with his cellphone while he is intubated today and also was face-timing his significant other while he is intubated. I have explained to him that he is not a candidate for extubation. I asked him if he was still using street drugs and he nodded that he was. Surprisingly a drug screen is only positive for the benzodiazepines he has been given since he has been intubated. FAMILY HISTORY: Negative for lung disease in early age. SOCIAL HISTORY: Is remarkable for street drug use, mainly PCP and marijuana in the past. REVIEW OF SYSTEMS: Not obtainable. PHYSICAL EXAMINATION: VITAL SIGNS: He made it very clear he wanted the tube out. Since he was on high PEEP of 10 and FiO2 of 60%, I would not extubate him. I have given the nurses order to keep him deeply sedated. His heart rate is 94, blood pressure has been stable throughout the day, and respiratory rate was turned down to 20. FiO2 was turned from 60 to 50. His PEEP was turned from 10 to 8. LUNGS: Distant. HEART: Regular rhythm. ABDOMEN: Soft. EXTREMITIES: Without clubbing, cyanosis, or edema. LABORATORY DATA: White count 12.7, hemoglobin 17.9, and platelets 213,000. Electrolytes are unremarkable. IMPRESSION AND PLAN: Respiratory failure with chest x-ray suggestive of increased interstitial markings. Some of this may be obesity mediated, but he clearly has gas exchange problems that are out of proportion to what his baseline normally is. His COVID screen was negative. He certainly could have a bacterial pneumonia. If he is inhaling drugs again this could create a problem as well. He does have life-threatening sleep apnea, which complicates all the above. We will follow with the other physicians caring for him. Critical care time, 30 minutes. Critical care time 30 min. Job ID: [id number] MTDD
[2020-04-02] MEDS: methylPREDNISolone Sod Succ 40 MG VIAL IVP SCH ×4 (05:53→23:10)
[2020-04-02 07:12] LABS: Hemoglobin 16.8 g/dL (14.0-18.0); Mean Corpuscular HGB CONC 30.1 g/dL (32.0-36.0); Mean Corpuscular Hemoglobin 26.7 pg (27.0-31.0); Mean Corpuscular Volume 88.5 fL (78.0-98.0); Mean Platelet Volume 8.8 fL (7.4-10.4); Platelet Count 280 thou/uL (130-400); White Blood Cell (WBC) Count 13.3 thou/uL (4.8-10.8)
--- NOTE | 2020-04-02 07:36 | RAD ---
RADIOGRAPH CHEST 1 VIEW: DATE: 04/02/2020 TIME: 7:21 AM HISTORY: 29-year-old male in respiratory failure COMPARISON: 04/01/2020 9:05 PM FINDINGS: The previously demonstrated endotracheal tube, with distal tip at C7 level, is currently not visualiz ed. The uppermost level visualized on the current study in the 2 submitted AP views, is C6. The esophagogastric tube remains. Mild pulmonary parenchymal densities at the bilateral lower lung zones, unchanged. Very mild scarlike density at right suprahilar upper lobe unchanged. No pneumothorax or pulmonary edema. IMPRESSION: 1) endotracheal tube is not visible on the current study. 2) no other interval change
[2020-04-02 07:47] LABS: Anion Gap 19 mmol/L (10-20); BUN (Urea Nitrogen) 20 mg/dL (8.9-20.6); Calc. Creatinine Clearance 180 mL/min (70-130); Calcium 9.7 mg/dL (7.8-10.44); Carbon Dioxide 24 mmol/L (22-29); Chloride 99 mmol/L (98-107); Estimated GFR-MDRD 84; Glucose 122 mg/dL (70-105); Potassium 4.4 mmol/L (3.5-5.1); Sodium 138 mmol/L (136-145)
[2020-04-02 07:49] LABS: Actual Bicarbonate (HCO3a) 29.3 mEq/L (22-28); Base Excess (BEa) 4.2 mEq/L (-2.0 to +3.0); CO2 Tension 44.9 mmHg (35.0-45.0); Calcium, Ionized (arterial) 1.24 mmol/L (1.12-1.30); Carboxyhemoglobin (COHb) 0.4 gm% (0.0-3.0); Hemoglobin (Hb) 18.4 g/dL (14.0-18.0); Potassium - ABG Lab 4.25 mmol/L (3.70-5.30); pH, Arterial 7.43 (7.35-7.45)
[2020-04-02 07:50] LABS: ALV-art Gradient 170.675 (0-20); O2 Tension (PaO2), arterial 58.4 mmHg (80.0-100.0); Puncture Site L.B.
[2020-04-02 07:54] LABS: Band 7 % (5-11); Lymphocytes 7 % (21-51); MDiff Complete? YES; Monocytes 7 % (0-10); Neutrophil 78 % (42-75); Platelet Morphology Comment Appears Adequate; RBC Morphology Normal; Reactive Lymphocytes 1 % (0-10)
--- NOTE | 2020-04-02 08:04 | PRG ---
DATE OF SERVICE: 04/02/2020 SUBJECTIVE: Mr. Valentin continues to be intubated and sedated. His overnight was uneventful. PHYSICAL EXAMINATION: VITAL SIGNS: Blood pressure 126/97, pulse 76, and temperature afebrile. LUNGS: Rhonchi and rales bilaterally. HEART: Regular rate and rhythm. ABDOMEN: Soft, nontender, and nondistended. EXTREMITIES: 1+ pitting edema. PERTINENT LABORATORY DATA: Hemoglobin 16.8, hematocrit 55, and platelet count 280. Creatinine 1.06. Peak troponin 0.2. IMPRESSION: 1. Respiratory failure. 2. Obesity. 3. Hypercapnic syndrome. 4. Illicit drug use. 5. Severe sleep apnea. RECOMMENDATIONS: At this point, I have no further recommendations for Mr. Valentin. His current demise is all likely related to respiratory failure from hypercapnia and severe untreated sleep apnea. I would recommend continued antibiotic therapy for possible pneumonia. Recommend adding low-dose aspirin. Avoid beta-heather therapy due to history of asthma. We will also recommend low-dose statin therapy. There are some concerns about compliance. Job ID: [id number]
[2020-04-02] MEDS ORDERED: Aspirin Chewable 81 MG TAB PO SCH (09:00)
[2020-04-02] MEDS: Enoxaparin Sodium 40 MG/0.4 ML SYRINGE SC SCH (09:29)
--- NOTE | 2020-04-02 10:47 | PDOC.HOSPP ---
- Subjective Encounter Date: 04/02/20 Encounter Time: 10:39 Subjective: extubated. no insight, only asks to be discharged, eat - Objective Vital Signs & Weight: Vital Signs (12 hours) Temp Pulse Resp BP Pulse Ox 04/02/20 08:00 13 99 04/02/20 07:20 76 126/97 H 04/02/20 07:00 97.7 F 04/02/20 06:00 20 04/02/20 04:00 97.8 F 20 04/02/20 02:21 67 04/02/20 02:00 20 04/02/20 00:00 97.7 F 20 Weight Admit Weight 319 lb Weight 319 lb 7.197 oz Most Recent Monitor Data Heart Rate from ECG 126 NIBP 156/111 NIBP BP-Mean 126 Respiration from ECG 17 SpO2 89 I&O: 04/01/20 04/02/20 04/03/20 06:59 06:59 06:59 Intake Total 332 1017.5 50 Output Total 420 1130 160 Balance -88 -112.5 -110 Result Diagrams: 04/02/20 07:06 04/02/20 07:06 Radiology Reviewed by me: Yes (cxr- pre-extubation, ET tube, no acute infiltrate. mild chronic changes) Hospitalist ROS - Medication Medications: Active Medications Generic Name Dose Route Start Last Admin Trade Name Freq PRN Reason Stop Dose Admin Aspirin 81 mg 04/02/20 09:00 04/02/20 09:29 Aspirin Chewable PO 81 mg DAILY JAMES Administration Enoxaparin Sodium 40 mg 04/01/20 09:00 04/02/20 09:29 Lovenox SC 40 mg 0900 JAMES Administration Azithromycin 500 mg/ Sodium 250 mls @ 250 mls/hr 04/01/20 15:00 04/01/20 17: 17 Chloride IVPB 250 mls 1500 JAMES Administration Fentanyl Citrate 2,000 mcg/ 100 mls @ 0 mls/hr 03/31/20 20:39 04/01/20 23:26 Sodium Chloride IV 04/30/20 20:39 100 mls INF JAMES Administration Protocol Per Protocol Lorazepam 2 mg 03/31/20 23:35 04/01/20 15:26 Ativan SLOW IVP 04/30/20 23:35 2 mg Q1H PRN Administration Breakthrough agitation Methylprednisolone Sodium Succinate 60 mg 03/31/20 23:59 04/02/20 05:53 Solu-Medrol IVP 60 mg Q6HR JAMES Administration Propofol 1,000 mg 03/31/20 23:35 04/02/20 05:50 Diprivan IV 04/30/20 23:35 1,000 mg INF PRN Administration TO ACHIEVE GOAL RASS Protocol Sodium Chloride 10 ml 04/01/20 21:00 04/02/20 09:29 Flush - Normal Saline IVF 10 ml Q12HR JAMES Administration - Exam General Appearance: awake alert Neck: no JVD Heart: RRR, no murmur Respiratory - other findings: coarse BS with rhonchi Gastrointestinal: soft, non-tender, normal bowel sounds Extremities: no edema Hosp A/P (1) Acute on chronic respiratory failure with hypoxia and hypercapnia Code(s): J96.21 - ACUTE AND CHRONIC RESPIRATORY FAILURE WITH HYPOXIA; J96.22 - ACUTE AND CHRONIC RESPIRATORY FAILURE WITH HYPERCAPNIA Status: Acute (2) Pneumonia Code(s): J18.9 - PNEUMONIA, UNSPECIFIED ORGANISM Status: Acute Qualifiers: Pneumonia type: due to unspecified organism Laterality: bilateral Lung location: lower lobe of lung Qualified Code(s): J18.9 - Pneumonia, unspecified organism (3) 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
[2020-04-02] MEDS: cefTRIAXone\\ROCEPHIN 2 GM in Sodium Chloride 0.9% 100 ML IVPB SCH (13:50)
[2020-04-02] MEDS: Azithromycin 500 MG in Sodium Chloride 0.9% 250 ML 250 ML IVPB SCH (14:51)
--- NOTE | 2020-04-02 16:44 | PRG ---
DATE OF SERVICE: 04/02/2020 Elliott Valentin was extubated successfully this morning. He admits to using drugs the night before he came in. He says a friend of his had something in what he was smoking that really messed him up. He says his lungs started burning after he started smoking that and he started getting short of breath and he does not remember anything after that. He appears to be in a sinus tachycardia with rate in the 130s, blood pressure 145/99, respiratory rates in the 30s. His gas exchange is okay. His oximetry is 93% on room air. He will need to be on BiPAP when he is sleeping. His lives in [place] and he says she cannot bring over his auto titrating BiPAP. He says he has been compliant with that. We will start him on our BiPAP. His auto titrating pressure started at 15, so we will start him out at 18/12 and see how he does with that. Critical care time 30 min. Job ID: [id number] MTDD
[2020-04-02] MEDS: Atorvastatin Calcium 40 MG TAB PO SCH (21:10)
[2020-04-03] MEDS: methylPREDNISolone Sod Succ 40 MG VIAL IVP SCH ×3 (05:04→17:47)
--- NOTE | 2020-04-03 08:34 | PRG ---
DATE OF SERVICE: 04/03/2020 SUBJECTIVE: Mr. Valentin is doing better. He is extubated. He has no current complaints. OBJECTIVE: VITAL SIGNS: Blood pressure 169/102, pulse 107, respirations 20. LUNGS: Clear to auscultation. HEART: Regular rate and rhythm. ABDOMEN: Soft, nontender, nondistended. EXTREMITIES: No edema. PERTINENT LABORATORY DATA: Hemoglobin 16.8, white blood cell count 13.3. Creatinine 1.23. IMPRESSION: 1. Elevated troponin. 2. Respiratory failure. 3. Severe sleep apnea. 4. Obesity. RECOMMENDATIONS: Elevated troponin secondary to demand ischemia. At this point, I recommend aggressive medical therapy. His troponin was minimally elevated at 0.2. Main issue currently is his blood pressure. He states he has been on blood pressure medication in the past, but he does not know whether it has controlled his symptoms. We will continue aspirin. We will add Norvasc 5 mg one p.o. q.a.m. in addition to losartan 50 mg one p.o. now. May also consider diuretic therapy. Job ID: [id number]
[2020-04-03] MEDS: Amlodipine 5 MG TAB PO SCH (08:57)
[2020-04-03] MEDS: Aspirin 81 mg Enteric Coated Tablet PO SCH (08:57)
[2020-04-03] MEDS: Losartan 25 MG TAB PO SCH (08:58)
[2020-04-03] MEDS: Enoxaparin Sodium 40 MG/0.4 ML SYRINGE SC SCH (08:58)
--- NOTE | 2020-04-03 09:49 | PDOC.HOSPP ---
- Subjective Encounter Date: 04/03/20 Encounter Time: 09:44 Subjective: 'I can't eat that heart healthy diet, its nasty' - Objective Vital Signs & Weight: Vital Signs (12 hours) Temp Pulse Resp BP Pulse Ox 04/03/20 08:57 102 H 156/109 H 04/03/20 08:16 93 L 04/03/20 07:00 98.6 F 04/03/20 03:00 97.9 F 04/03/20 00:24 21 H 04/02/20 23:00 98.3 F Weight Admit Weight 319 lb Weight 319 lb 7.197 oz Most Recent Monitor Data Heart Rate from ECG 97 NIBP 176/96 NIBP BP-Mean 122 Respiration from ECG 31 SpO2 86 I&O: 04/02/20 04/03/20 04/04/20 06:59 06:59 06:59 Intake Total 1017.5 2471.6 Output Total 1130 1770 370 Balance -112.5 701.6 -370 Result Diagrams: 04/02/20 07:06 04/02/20 07:06 Hospitalist ROS - Medication Medications: Active Medications Generic Name Dose Route Start Last Admin Trade Name Freq PRN Reason Stop Dose Admin Amlodipine Besylate 5 mg 04/03/20 09:00 04/03/20 08:57 Norvasc PO 5 mg DAILY JAMES Administration Aspirin 81 mg 04/03/20 09:00 04/03/20 08:57 Ecotrin PO 81 mg DAILY JAMES Administration Atorvastatin Calcium 40 mg 04/02/20 21:00 04/02/20 21:10 Lipitor PO 40 mg HS JAMES Administration Enoxaparin Sodium 40 mg 04/01/20 09:00 04/03/20 08:58 Lovenox SC 40 mg 0900 JAMES Administration Azithromycin 500 mg/ Sodium 250 mls @ 250 mls/hr 04/01/20 15:00 04/02/20 14: 51 Chloride IVPB 250 mls 1500 JAMES Administration Fentanyl Citrate 2,000 mcg/ 100 mls @ 0 mls/hr 03/31/20 20:39 04/01/20 23:26 Sodium Chloride IV 04/30/20 20:39 100 mls INF JAMES Administration Protocol Per Protocol Ceftriaxone Sodium 2 gm/ 100 mls @ 200 mls/hr 04/02/20 14:00 04/02/20 13:50 Sodium Chloride IVPB 100 mls 1400 JAMES Administration Lorazepam 2 mg 03/31/20 23:35 04/01/20 15:26 Ativan SLOW IVP 04/30/20 23:35 2 mg Q1H PRN Administration Breakthrough agitation Losartan Potassium 50 mg 04/03/20 09:00 04/03/20 08:58 Cozaar PO 50 mg DAILY JAMES Administration Methylprednisolone Sodium Succinate 60 mg 03/31/20 23:59 04/03/20 05:04 Solu-Medrol IVP 60 mg Q6HR JAMES Administration Propofol 1,000 mg 03/31/20 23:35 04/02/20 05:50 Diprivan IV 04/30/20 23:35 1,000 mg INF PRN Administration TO ACHIEVE GOAL RASS Protocol Sodium Chloride 10 ml 04/01/20 21:00 04/03/20 08:59 Flush - Normal Saline IVF 10 ml Q12HR JAMES Administration - Exam General Appearance: awake alert Neck: no JVD Heart: RRR Respiratory - other findings: clear onL, Coarse on R Gastrointestinal: soft, normal bowel sounds Extremities: 1+ LE edema Hosp A/P (1) Acute on chronic respiratory failure with hypoxia and hypercapnia Code(s): J96.21 - ACUTE AND CHRONIC RESPIRATORY FAILURE WITH HYPOXIA; J96.22 - ACUTE AND CHRONIC RESPIRATORY FAILURE WITH HYPERCAPNIA Status: Acute (2) Pneumonia Code(s): J18.9 - PNEUMONIA, UNSPECIFIED ORGANISM Status: Acute Qualifiers: Pneumonia type: due to unspecified organism Laterality: bilateral Lung location: lower lobe of lung Qualified Code(s): J18.9 - Pneumonia, unspecified organism (3) 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 Code(s): J68.4 - CHRONIC RESP COND DUE TO CHEMICALS, GASES, FUMES AND VAPORS Status: Chronic (4) Hypertension Code(s): I10 - ESSENTIAL (PRIMARY) HYPERTENSION Status: Chronic Qualifiers: Hypertension type: essential hypertension Qualified Code(s): I10 - Essential (primary) hypertension (5) Ischemia due to increased oxygen demand Code(s): I24.8 - OTHER FORMS OF ACUTE ISCHEMIC HEART DISEASE Status: Acute (6) Illicit drug use Code(s): F19.90 - OTHER PSYCHOACTIVE SUBSTANCE USE, UNSPECIFIED, UNCOMPLICATED Status: Acute (7) VANESSA (obstructive sleep apnea) Code(s): G47.33 - OBSTRUCTIVE SLEEP APNEA (ADULT) (PEDIATRIC) Status: Acute - Plan cont iv glucocorticoids cont iv antibx discuss with machine iii coremaker lack of insight complicates everything appreciate cardiology insight re HTN, trying to obtain home BP meds
[2020-04-03] MEDS: cefTRIAXone\\ROCEPHIN 2 GM in Sodium Chloride 0.9% 100 ML IVPB SCH (13:58)
[2020-04-03] MEDS: Azithromycin 500 MG in Sodium Chloride 0.9% 250 ML 250 ML IVPB SCH (15:38)
--- NOTE | 2020-04-03 18:07 | PRG ---
DATE OF SERVICE: 04/03/2020 SUBJECTIVE: Elliott Valentin is stable overnight. He is still on room air. OBJECTIVE: VITAL SIGNS: He is afebrile, heart rate is 107, respiratory rate is 20, blood pressure is 151/86. LUNGS: Remarkable for distant crackles. HEART: Regular rhythm. ABDOMEN: Soft. LABORATORY DATA: White count 13.3 yesterday, no CBC today. No electrolytes today. 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 I have explained to him that he became very close to dying. Also, got him to acknowledge that the last time he was in my office under 2 weeks ago, we talked about his ongoing drug use that he had to quit using drugs. I asked him if he was smoking marijuana laced with formaldehyde, he said he would never do that, but he also could not tell me what was in the joint he smoked. It did not screen out for marijuana, but he does admit that he was smoking a joint that had something terrible in it and he said his lungs started burning as soon as he started inhaling the drugs. He is stable to move to a medical bed in my opinion. He will need to continue with his BiPAP at bedtime. Job ID: [id number]
[2020-04-03] MEDS: Atorvastatin Calcium 40 MG TAB PO SCH (20:51)
[2020-04-04] MEDS: methylPREDNISolone Sod Succ 40 MG VIAL IVP SCH ×2 (00:04→05:33)
[2020-04-04] MEDS: Enoxaparin Sodium 40 MG/0.4 ML SYRINGE SC SCH (08:47)
[2020-04-04] MEDS: Amlodipine 5 MG TAB PO SCH (08:47)
[2020-04-04] MEDS: predniSONE 20 MG TAB PO SCH (08:47)
[2020-04-04] MEDS: Losartan 25 MG TAB PO SCH (08:48)
[2020-04-04] MEDS: Aspirin 81 mg Enteric Coated Tablet PO SCH (08:48)
--- NOTE | 2020-04-04 13:00 | PRG ---
DATE OF SERVICE: 04/04/2020 SUBJECTIVE: Elliott Valentin had a good night. He wants to go home because he ate food. I have switched him to a regular diet, hopefully, to . OBJECTIVE: VITAL SIGNS: He is afebrile. Heart rate is 98, respiratory rate is 20, oximetry is 91 on room air, blood pressure 135/94. LUNGS: Clear. HEART: Regular rhythm. ABDOMEN: Soft. IMPRESSION: Acute pulmonary reaction to an inhaled street drug of unclear etiology. I suppose this could have been some poisonous K2 that would not screen out on a drug screen. He thought he was being handed joint smoke and then said his lungs started burning. I have explained to him and his significant other that he really needs to find some new friends. If he can eat today, ambulate successfully with minimal dyspnea, he will be discharged home in the morning. Job ID: [id number]
--- NOTE | 2020-04-04 13:16 | PDOC.HOSPP ---
- Subjective Encounter Date: 04/04/20 Encounter Time: 13:14 Subjective: alert, no distress on RA - Objective Vital Signs & Weight: Vital Signs (12 hours) Temp Pulse Resp BP BP Pulse Ox 04/04/20 11:00 98.5 F 98 20 135/94 H 91 L 04/04/20 08:59 95 04/04/20 08:47 92 156/95 H 04/04/20 07:23 97.7 F 92 20 156/95 H 95 04/04/20 04:55 97.7 F 91 18 132/78 97 Weight Admit Weight 319 lb Weight 319 lb 7.197 oz Most Recent Monitor Data Heart Rate from ECG 98 NIBP 143/93 NIBP BP-Mean 109 Respiration from ECG 22 SpO2 97 I&O: 04/03/20 04/04/20 04/05/20 06:59 06:59 06:59 Intake Total 2471.6 1126 Output Total 1770 1170 Balance 701.6 -44 Result Diagrams: 04/02/20 07:06 04/02/20 07:06 Hospitalist ROS - Medication Medications: Active Medications Generic Name Dose Route Start Last Admin Trade Name Freq PRN Reason Stop Dose Admin Amlodipine Besylate 5 mg 04/03/20 09:00 04/04/20 08:47 Norvasc PO 5 mg DAILY JAMES Administration Aspirin 81 mg 04/03/20 09:00 04/04/20 08:48 Ecotrin PO 81 mg DAILY JAMES Administration Atorvastatin Calcium 40 mg 04/02/20 21:00 04/03/20 20:51 Lipitor PO 40 mg HS JAMES Administration Enoxaparin Sodium 40 mg 04/01/20 09:00 04/04/20 08:47 Lovenox SC 40 mg 09 JAMES Administration Losartan Potassium 50 mg 04/03/20 09:00 04/04/20 08:48 Cozaar PO 50 mg DAILY JAMES Administration Prednisone 40 mg 04/04/20 08:00 04/04/20 08:47 Prednisone PO 40 mg QAM-WM JAMES Administration Sodium Chloride 10 ml 04/01/20 21:00 04/04/20 08:48 Flush - Normal Saline IVF 10 ml Q12HR JAMES Administration - Exam General Appearance: awake alert Neck: no JVD Heart: RRR, no murmur Respiratory: CTAB Gastrointestinal: soft, no palpable masses Extremities: no edema Hosp A/P (1) Acute on chronic respiratory failure with hypoxia and hypercapnia Code(s): J96.21 - ACUTE AND CHRONIC RESPIRATORY FAILURE WITH HYPOXIA; J96.22 - ACUTE AND CHRONIC RESPIRATORY FAILURE WITH HYPERCAPNIA Status: Acute (2) Pneumonia Code(s): J18.9 - PNEUMONIA, UNSPECIFIED ORGANISM Status: Acute Qualifiers: Pneumonia type: due to unspecified organism Laterality: bilateral Lung location: lower lobe of lung Qualified Code(s): J18.9 - Pneumonia, unspecified organism (3) 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 Code(s): J68.4 - CHRONIC RESP COND DUE TO CHEMICALS, GASES, FUMES AND VAPORS Status: Chronic (4) Hypertension Code(s): I10 - ESSENTIAL (PRIMARY) HYPERTENSION Status: Chronic Qualifiers: Hypertension type: essential hypertension Qualified Code(s): I10 - Essential (primary) hypertension (5) Ischemia due to increased oxygen demand Code(s): I24.8 - OTHER FORMS OF ACUTE ISCHEMIC HEART DISEASE Status: Acute (6) Illicit drug use Code(s): F19.90 - OTHER PSYCHOACTIVE SUBSTANCE USE, UNSPECIFIED, UNCOMPLICATED Status: Acute (7) VANESSA (obstructive sleep apnea) Code(s): G47.33 - OBSTRUCTIVE SLEEP APNEA (ADULT) (PEDIATRIC) Status: Acute - Plan deescalate steroids to po prednisone DC iv antibx miko nocturnal BIPAP discuss with color receiver
[2020-04-04 13:59] LABS: Anion Gap 13 mmol/L (10-20); BUN (Urea Nitrogen) 19 mg/dL (8.9-20.6); Calc. Creatinine Clearance 238 mL/min (70-130); Calcium 9.1 mg/dL (7.8-10.44); Carbon Dioxide 34 mmol/L (22-29); Chloride 96 mmol/L (98-107); Estimated GFR-MDRD Greater than 90; Glucose 215 mg/dL (70-105); Potassium 4.4 mmol/L (3.5-5.1); Sodium 139 mmol/L (136-145)
[2020-04-04 15:12] LABS: #Lymphocytes 0.7 thou/uL (1.20-3.40); #Monocytes 0.5 thou/uL (0.11-0.59); #Neutrophils 11.7 thou/uL (1.40-6.50); %Eosinophils 0.1 % (0.0-10.0); %Lymphocytes 5.3 % (21.0-51.0); %Monocytes 3.5 % (0.0-10.0); Hemoglobin 16.6 g/dL (14.0-18.0); Mean Corpuscular HGB CONC 29.8 g/dL (32.0-36.0); Mean Corpuscular Hemoglobin 27.2 pg (27.0-31.0); Mean Corpuscular Volume 91.4 fL (78.0-98.0); Mean Platelet Volume 8.6 fL (7.4-10.4); Platelet Count 250 thou/uL (130-400); Platelet Morphology Comment Appears Adequate; RBC Morphology Normal; Red Blood Cell (RBC) Count 6.11 mill/uL (4.70-6.10); White Blood Cell (WBC) Count 12.9 thou/uL (4.8-10.8)
[2020-04-04 15:21] LABS: MDiff Complete? YES
[2020-04-04] MEDS: Atorvastatin Calcium 40 MG TAB PO SCH (20:36)
--- NOTE | 2020-04-05 07:31 | PRG ---
DATE OF SERVICE: 04/04/2020 TIME OF VISIT: 0845 hours. SUBJECTIVE: Mr. Valentin has done well overnight. His blood pressure is getting more stabilized. He remains tachycardic intermittently. He has no complaints right now. OBJECTIVE: GENERAL: This is a pleasant, morbidly obese male, who is in no acute distress. VITAL SIGNS: Stable. HEENT: Head is atraumatic and normocephalic. Mucous membranes are moist. NECK: Supple. RESPIRATORY: Reveals decreased breath sounds bilaterally due to obesity. CARDIOVASCULAR: Regular rate and rhythm. ABDOMEN: Soft and morbidly obese. EXTREMITIES: Bilateral lower extremity edema, +1. SKIN: Warm and dry. LABORATORY DATA: No significant findings. IMPRESSION: 1. Elevated troponin I. 2. Acute respiratory failure secondary to unspecified drug use. 3. History of chronic interstitial lung disease. 4. History of end-stage renal disease. 5. Hypertension. 6. Morbid obesity. At this time, we will continue conservative measures for blood pressure management. He is improving overall and his primary meat and seafood manager has comparatively discussed cessation of drug use with the patient. He verbalized understanding. Consider increasing Norvasc tomorrow. Job ID: [id number] [facility]
[2020-04-05] MEDS: Amlodipine 5 MG TAB PO SCH (08:43)
[2020-04-05] MEDS: predniSONE 20 MG TAB PO SCH (08:43)
[2020-04-05] MEDS: Aspirin 81 mg Enteric Coated Tablet PO SCH (08:43)
[2020-04-05] MEDS: Enoxaparin Sodium 40 MG/0.4 ML SYRINGE SC SCH (08:44)
[2020-04-05] MEDS: Losartan 25 MG TAB PO SCH (08:44)
[2020-04-05 11:16] VITALS: BP 122/77; TEMP 98.1
--- NOTE | 2020-04-05 12:27 | DIS ---
DATE OF ADMISSION: 03/31/2020 DATE OF DISCHARGE: 04/05/2020 PRIMARY CARE PROVIDER: Kalyn Lane MD. DISPOSITION: Discharged home. FINAL DIAGNOSES: Acute respiratory failure with hypoxia, essential hypertension, interstitial lung disease, demand ischemia, illicit drug use, obstructive sleep apnea, hypertension, morbid obesity DISCHARGE MEDICATIONS: 1. Albuterol nebulizer 2.5 mg q.6 hours p.r.n. 2. Advair Diskus 250/50 one inhalation twice a day. 3. Prednisone 40 mg a day for 7 days, then 20 mg a day for 6 days, then discontinue. 4. Losartan 50 mg a day. 5. Atorvastatin 40 mg one p.o. at bedtime. 6. Aspirin 81 mg a day. 7. Norvasc 5 mg a day. ALLERGIES: NO KNOWN DRUG ALLERGIES. CODE STATUS: Full. DIET: Heart healthy, which he will not do. PENDING AT TIME OF DISCHARGE: Nothing. HOSPITAL COURSE: The patient admitted to the emergency room to the hospitalist service, transferred from [facility] due to respiratory failure. He was intubated with a diagnosis of chronic respiratory failure on acute respiratory failure with hypoxia, hypercapnia, probable pneumonia bilateral, history of COVID pneumonia, resolved, started on steroids. He was seen in consultation by Dr. Dexter Negrete, his electronic field service engineer. His current COVID test was negative. He was seen in consultation by Dr. Sb Nettles, Cardiology, who thought that his elevated troponins were due to demand ischemia. On 04/02, he was extubated. He admitted to using an unknown substance in a large cigarette type roll. He was started on BiPAP at night. His initial laboratory showed a white count of 12.7, followup 13.3, followup 12.9. Hemoglobin was stable with a mild polycythemia 17.9, 16.8, 16.6. His initial blood gas showed a pH of 7.03, CO2 of 135. On 04/02, it was 7.43, CO2 of 44.9, O2 still low at 58.4. His chemistries were basically unremarkable. He did have troponins of 0.258, 0.246, 0.253. His toxicology showed only benzos. Drug screen was negative. He was treated aggressively. Steroids tapered to p.o., antibiotics started stopped, blood pressure was controlled. Currently, he is alert. Chest is clear. Heart, regular rate and rhythm. Vital signs were stable. He is being discharged on the aforementioned medicines. He needs to see his PCP, Dr. Lane in 3 to 7 days for followup. Needs to see Dr. Negrete in 1 to 2 weeks for followup. He has been counseled once again on the risk of smoking anything. He has been counseled on the need to take his medicines and the need to use his BiPAP every night. No procedures were done. 35 minutes spent preparing this discharge. Job ID: [id number]
--- NOTE | 2020-04-08 07:31 | PQF ---
CLINICAL DOCUMENTATION CLARIFICATION FORM: Dear : Gurvinder Roajs Date / Time: 04/08/2020 07:29 Please exercise your independent, professional judgment in responding to the clarification form. Clinical indicators are provided on the bottom of this form for your review Please check appropriate box(es): [ ] Sepsis [ ] Localized infection without sepsis [ ] Other diagnosis [ ] Unable to determine In addition, please specify: Present on Admission (POA): [ ] Yes [ ] No [ ] Unable to determine Physician Signature: Date/Time: For continuity of documentation, please document condition throughout progress notes and discharge summary. Thank You. To be completed by CDI/Coding staff for physician review: Present Clinical Indicators - Signs / Symptoms / Labs Results and Location in Medical Record [x] He certainly could have a bacterial PNA Consult 04/01 [x] Chest Xray: Bibasilar lung consolidation Chest Xray 03/31 [x] Patient presented for evaluation of SOB ED Notes 03/31 [x] patient was confused HP 03/31 [x] Acute respiratory failure secondary to unspecified drug use PN 04/04 [x] Temp=98.5 [id number] PA=073/103 Respi=24 Vital Signs 03/31 [x] WBC: 04/01=12.7 04/02=13.3 04/04=12.9 Labs 04/01 [x] Lactic: 03/31=1.9 Labs 04/01 [x] Procalcitonin: 04/01=0.17 Labs 04/01 [x] blood culture: no growth Collected 03/31 Present Risk Factors Results and Location in Medical Record [x] Smoker ED Notes 03/31 [x] Morbid Obesity HP 03/31 [x] PNA HP 03/31 Present Treatments Results and Location in Medical Record [x] Chest Xray Collected 03/31 [x] Intubation with ventilation ED Notes 03/31 [x] Azithromycin 500mg IV OCT 08 [x] Rocephin 2gm IV OCT 08 [x] Blood culture Collected 03/31 [x] Pulmonology Consult Consult 03/31 CDS/Mill Roll Operator Signature: Jaime Irwin Phone #: [phone] Date/Time: 04/08/20 07:29 This is a permanent part of the Medical Record [facility]
== END 2020-04-05 11:46 | disposition home or self-care (01) | DRG 917 ==
LOC: ERS 18:33 → CCU 19:45 → T4-A 04-03 14:46
PROVIDERS: ADMIT Internal Medicine; ATTEND Internal Medicine
PROC: 0BH18EZ Insertion of Endotracheal Airway into Trachea, Via Natural or Artificial Opening Endoscopic (ICD-10-PCS; principal; 2020-03-31)
PROC: 5A1945Z Respiratory Ventilation, 24-96 Consecutive Hours (ICD-10-PCS; 2020-03-31)
PROC: 5A09357 Assistance with Respiratory Ventilation, Less than 24 Consecutive Hours, Continuous Positive Airway Pressure (ICD-10-PCS; 2020-04-03)
DX: T50.901A Poisoning by unspecified drugs, medicaments and biological substances, accidental (unintentional), initial encounter (principal); J96.22 Acute and chronic respiratory failure with hypercapnia; J96.21 Acute and chronic respiratory failure with hypoxia; J18.9 Pneumonia, unspecified organism; I24.8 Other forms of acute ischemic heart disease; J44.0 Chronic obstructive pulmonary disease with (acute) lower respiratory infection; Z68.42 Body mass index [BMI] 45.0-49.9, adult; I11.0 Hypertensive heart disease with heart failure; F17.200 Nicotine dependence, unspecified, uncomplicated; I50.9 Heart failure, unspecified; J68.4 Chronic respiratory conditions due to chemicals, gases, fumes and vapors; E66.01 Morbid (severe) obesity due to excess calories; Z20.828 Contact with and (suspected) exposure to other viral communicable diseases; G47.33 Obstructive sleep apnea (adult) (pediatric); D75.1 Secondary polycythemia
CPT/HCPCS: 31500; 36415; 51702; 71045; 80048; 80053; 80306; 82805; 83605; 83615; 84145; 85007; 85025; 85027; 85379; 86140; 93005; 94003; 94660; 96365; J0456; J0696; J1650; J2060; J2704; J2920; J3010; J3490; J7050; J7512; J7611; U0002

== ENCOUNTER 2020-05-21 08:32 | Outpatient (CLI) | payer OTHER ==
--- NOTE | 2020-05-21 10:18 | NM ---
NUCLEAR MEDICINE CARDIAC STRESS ONLY: HISTORY: Abnormal findings on blood chemistry. TECHNIQUE: Stress only imaging was performed. Patient was administered 29.60 mCi of technetium 99m sestamibi in travenously. FINDINGS: There is homogeneous distribution of the radiotracer in the left ventricle. End-diastolic volume is 170 mL. End-systolic volume is 79 L. Cardiac gating: Normal wall motion and thickening. 53% ejection fraction. IMPRESSION: 1. Homogeneous distribution of the radiotracer. 2. Dilatation of left ventricle. 3. 50% ejection fraction. Transcribed Date/Time: 05/21/2020 10:47 AM
[2020-05-21] MEDS ORDERED: Regadenoson 0.4 MG/5 ML SYRINGE ONE (10:40)
== END 2020-05-21 08:33 | disposition home or self-care (01) ==
LOC: NM 08:32
PROVIDERS: ATTEND Physician Assistant
DX: R79.89 Other specified abnormal findings of blood chemistry (principal); I51.7 Cardiomegaly
CPT/HCPCS: 78452; 93017; A9500; J2785

== ENCOUNTER 2020-09-01 10:31 | Observation (INO) | payer OTHER, SELFPAY ==
--- NOTE | 2020-09-01 11:42 | ULT ---
ULTRASOUND ABDOMEN LIMITED: (RIGHT UPPER QUADRANT) DATE: 09/01/2020 HISTORY: Right upper quadrant abdominal pain in 29-year-old male FINDINGS: Limited visualization of intra-abdominal contents due to body habitus. Gallbladder: Normal wall thickness. No gallstones identified. No pericholecystic fluid. Liver: Normal parenchymal echogenicity. Right kidney: No hydronephrosis. Pancreas: Visualized, with no gross sonographic abnormality identified (although ultrasound is relati vely insensitive for the detection of pancreatic pathology compared to CT and MRI.). Common duct caliber: 4 mm. IMPRESSION: Negative
[2020-09-01 11:49] LABS: Troponin I 0.013 ng/mL (< 0.028)
[2020-09-01] MEDS ORDERED: Fentanyl 100 MCG/2 ML VIAL ONE (14:07)
[2020-09-01] MEDS ORDERED: Sodium Chloride 0.9% 1,000 ML IV SCH (16:00)
[2020-09-01] MEDS ORDERED: Acetaminophen 325 MG TAB PO PRN (16:00)
[2020-09-01] MEDS ORDERED: Ondansetron PF 4 MG/2 ML Vial IVP PRN (16:00)
[2020-09-01] MEDS ORDERED: Ondansetron ODT 4 MG TAB SL PRN (16:00)
[2020-09-01 16:36] VITALS: BMI 52.9
--- NOTE | 2020-09-01 19:49 | PDOC.HHP ---
Hospitalist HPI diaphoresis, abdominal pain History of Present Illness: This a 29-year-old male with a history of VANESSA, hypertension, and diastolic heart failure who presented to the emergency room with diaphoresis and abdominal pain. According to the , the patient has frequent episodes of abdominal pain and diaphoresis, but these typically resolve within a few minutes of taking Zofran and drinking water. However, this time his abdominal pain and sweating persisted. His abdominal pain was in the right upper quadrant, sharp, constant, and nonradiating. The patient states that he ate 2 pieces of meat yesterday and ate a small amount this morning after which he threw up once and since then, has not eaten. He denies any fevers or chills, cough, shortness of breath, constipation, diarrhea. He does state his urine is dark. The checked his blood pressure which was 180/110 systolic this morning. They went to [place] [facility], and his heart rate was 120-130 and they had difficulty reducing his heart rate so he was transferred here. ED Course: When he presented to the emergency room, his temp was 98.1. His heart rate was 135, blood pressure was normal. His O2 sat was 92% on 4 L of oxygen. Hemoglobin was 18.8. Hematocrit was 62.7. BMP showed a CO2 of 31. Lipase was 286. Chest X ray showed no pneumonia. Abdominal ultrasound showed no gallstones. Patient was given fentanyl, and IV fluids and was transferred here for further work-up. Patient states his abdominal pain is resolved since getting fentanyl and he would like to eat now. Allergies/Adverse Reactions: Allergy/AdvReac Type Severity Reaction Status Date / Time No Known Allergies Allergy Verified 11/28/19 14:25 Home Medications: Medication Instructions Recorded Confirmed Type ALButerol Sulfate [Ventolin Neb] 2.5 mg NEB Q6HR 11/28/19 09/01/20 History Amlodipine [Norvasc] 5 mg PO DAILY #30 tab 04/05/20 09/01/20 Rx Aspirin [Ecotrin Low Strength] 81 mg PO DAILY tab 04/05/20 09/01/20 Rx Atorvastatin Calcium [Lipitor] 40 mg PO HS #30 tab 04/05/20 09/01/20 Rx Ipratropium [place] 0.5 mg NEB Q6HR 09/01/20 09/01/20 History Losartan Potassium 50 mg PO DAILY 09/01/20 09/01/20 History Past History: PMHx: VANESSA CHF Hypertension Interstitial lung disease Chronic polycythemia PSHx: Tonsillectomy FHx: no lung problems in the family Social: smokes 1/2 pack per day. Does not drink alcohol or use any other drugs Hospitalist HPI ROS Constitutional: denies: fever, chills Hospitalist Exam Vitals: Vital Signs (12 hours) Temp Pulse Resp BP Pulse Ox 09/01/20 16:06 98.8 F 138 H 22 H 134/64 88 L Weight Weight 337 lb 9.6 oz General Appearance: NAD, awake alert General - other findings: obese Eye: PERRL, anicteric sclera ENT: normocephalic atraumatic, no oropharyngeal lesions Neck: no JVD Heart: no murmur, no gallops, no rubs Heart - other findings: tachycardic Respiratory: CTAB, no wheezes, no rales, no ronchi Gastrointestinal: soft, non-tender, non-distended, normal bowel sounds Extremities: no cyanosis, no clubbing, no edema Skin: normal turgor, no lesions, no rashes Neurological: cranial nerve grossly intact, normal sensation to touch, no weakness Musculoskeletal: normal tone, normal strength, no muscle wasting Psychiatric: normal affect, normal behavior, A&O x 3, oriented to person Hospitalist Results Lab results: Laboratory Last Values Troponin I 0.013 ng/mL (< 0.028) 09/01/20 11:18 Hospitalist H&P A/P Plan: Chest X ray: mild pulmonary densities, no pneumonia Abd US: no gallstones This is a 29-year-old male who presented to the hospital with abdominal pain, diaphoresis and persistent tachycardia. His lipase was 286. Admitted for pancreatitis. Diaphoresis - will order blood cultures. COVID swab is pending. Chest Xray showed no pneumonia. Urine showed no evidence of UTI. Will check an ECHO since he is tachycardic Pancreatitis -His abdominal pain is resolved. Resumed regular diet. On fluids Polycythemia - possibly from smoking vs lung disease -Hemoglobin 18, and hematocrit 62. He is getting fluids . Repeat CBC in the morning. He is requesting therapeutic phlebotomy which he gets periodically if his Hct is > [address] Negrete for this Sinus tachycardia - currently getting fluids. BNP less than 10. Will add IV metoprolol prn. VANESSA - continue CPAP Interstitial lung disease - will order prn albuterol Disposition: will admit under observation and monitor heart rate and f/u cultures
[2020-09-01] MEDS ORDERED: Metoprolol Tartrate 5 MG/5 ML VIAL IVP PRN (19:54)
[2020-09-01] MEDS ORDERED: Albuterol 200 PUFF (6.7GM INHALER) INH PRN (20:01)
[2020-09-01] MEDS ORDERED: Atorvastatin Calcium 40 MG TAB PO SCH (21:00)
[2020-09-01 22:37] LABS: SARS-CoV-2 PCR by NAA Not Detected (NotDetected)
[2020-09-01] MEDS ORDERED: Albuterol 200 PUFF (6.7GM INHALER) INH SCH (23:59)
[2020-09-02] MEDS: Ipratropium Oral Inhaler INH SCH ×4 (00:52→18:41)
[2020-09-02 04:52] LABS: Hemoglobin 16.8 g/dL (14.0-18.0); Mean Corpuscular HGB CONC 30.9 g/dL (32.0-36.0); Mean Corpuscular Hemoglobin 29.2 pg (27.0-31.0); Mean Corpuscular Volume 94.5 fL (78.0-98.0); Mean Platelet Volume 8.7 fL (7.4-10.4); Platelet Count 165 thou/uL (130-400); RBC Distribution Width 13.9 % (11.5-14.5); Red Blood Cell (RBC) Count 5.76 mill/uL (4.70-6.10); White Blood Cell (WBC) Count 6.7 thou/uL (4.8-10.8)
[2020-09-02 05:05] LABS: Anion Gap 14 mmol/L (10-20); BUN (Urea Nitrogen) 9 mg/dL (8.9-20.6); Calc. Creatinine Clearance 225 mL/min (70-130); Calcium 8.8 mg/dL (7.8-10.44); Carbon Dioxide 29 mmol/L (22-29); Chloride 101 mmol/L (98-107); Glucose 89 mg/dL (70-105); Potassium 4.6 mmol/L (3.5-5.1); Sodium 139 mmol/L (136-145)
[2020-09-02] MEDS ORDERED: FLU VACC QS2020-21(6MOS UP)/PF 60 MCG/0.5 ML SYRINGE IM ONE (09:00)
[2020-09-02] MEDS ORDERED: Losartan 25 MG TAB PO SCH (09:00)
[2020-09-02] MEDS ORDERED: Amlodipine 5 MG TAB PO SCH (09:00)
--- NOTE | 2020-09-02 12:29 | PDOC.DS.DS ---
Provider Date of Admission: 09/01/20 13:00 Date of Discharge: 09/02/20 Admitting Provider: Mis Gomez MD Primary Care Physician: Kalyn Lane Course Hospital Course: Discharge diagnosis: 1. Acute pancreatitis 2. Tachycardia 3. Diaphoresis Hospital course: Patient is a pleasant 29-year-old gentleman who was admitted to the hospital on September 01, 2020 for acute pancreatitis, diaphoresis and sinus tachycardia. He received intravenous fluids, with dramatic improvement clinically. He is being discharged home in a stable condition. Many thanks for allowing me to participate in your patient's care. Please feel free to contact me with any questions or concerns. Discharge destination: Home Lab Results: 09/02/20 03:45 09/02/20 03:45 Abnormal Lab Results - Last 48 hrs 09/02/20 03:45: Hct 54.4 H, MCHC 30.9 L Microbiology - Entire Visit 09/01/20 21:09 Venous blood - Left Arm Blood Culture - Preliminary Specimen has been received and culture in progress. No Growth to date. 09/01/20 21:09 Venous blood - Right Arm Blood Culture - Preliminary Specimen has been received and culture in progress. No Growth to date. Vitals: Vital Signs (12 hours) Temp Pulse Resp BP Pulse Ox 09/02/20 11:46 98 131/76 09/02/20 11:15 99.0 F 95 145/108 H 95 09/02/20 08:45 87 L 09/02/20 08:43 101 H 20 87 L 09/02/20 07:19 98.8 F 105 H 12 137/81 94 L 09/02/20 04:00 99.4 F 103 H 19 133/99 H 94 L Weight Weight 337 lb 9.6 oz Physical Exam: The patient was seen and examined on the day of discharge. Patient denies chest pain or shortness of breath. Vital signs are stable. S1 and S2 are heard. Lungs are clear to auscultation bilaterally. Plan Home Medications: Medication Instructions Recorded Confirmed Type ALButerol Sulfate [Ventolin Neb] 2.5 mg NEB Q6HR 11/28/19 09/01/20 History Amlodipine [Norvasc] 5 mg PO DAILY #30 tab 04/05/20 09/01/20 Rx Aspirin [Ecotrin Low Strength] 81 mg PO DAILY tab 04/05/20 09/01/20 Rx Atorvastatin Calcium [Lipitor] 40 mg PO HS #30 tab 04/05/20 09/01/20 Rx Ipratropium [place] 0.5 mg NEB Q6HR 09/01/20 09/01/20 History Losartan Potassium 50 mg PO DAILY 09/01/20 09/01/20 History Allergies: No Known Allergies Allergy (Verified 11/28/19 14:25) Activity:: Activity as Tolerated Nourishment:: Heart Healthy Diet Referrals: Kalyn Lane MD [Primary Care Provider] - 3 Days Disposition: HOME Quality CORE MEASURES:: N/A
[2020-09-02 15:42] VITALS: TEMP 98.5
[2020-09-02 23:03] VITALS: BP 136/93
== END 2020-09-02 18:15 | disposition home or self-care (01) ==
LOC: ERS 10:31 → 2NO 13:00
PROVIDERS: ADMIT Internal Medicine; ATTEND Internal Medicine
DX: K85.90 Acute pancreatitis without necrosis or infection, unspecified (principal); R00.0 Tachycardia, unspecified; R61 Generalized hyperhidrosis; G47.33 Obstructive sleep apnea (adult) (pediatric); I11.0 Hypertensive heart disease with heart failure; I50.30 Unspecified diastolic (congestive) heart failure; F17.210 Nicotine dependence, cigarettes, uncomplicated; J84.9 Interstitial pulmonary disease, unspecified; D75.1 Secondary polycythemia; Z79.82 Long term (current) use of aspirin; Z79.899 Other long term (current) drug therapy; Z20.822 Contact with and (suspected) exposure to COVID-19
CPT/HCPCS: 36415; 76705; 80048; 85027; 87040; 87635; 93306; 96374; G0378; J3010; U0003; U0005

== ENCOUNTER 2020-12-15 16:56 | Inpatient (IN) | payer MEDICAID, SELFPAY ==
[~2020-12-15 16:56] MED LIST: Iopamidol-370 76% 500 ML 1 ML ONE
[2020-12-15] MEDS ORDERED: Albuterol 200 PUFF (6.7GM INHALER) ONE (17:48)
[2020-12-15 17:57] LABS: Hemoglobin 16.5 g/dL (14.0-18.0); Mean Corpuscular HGB CONC 29.8 g/dL (32.0-36.0); Mean Corpuscular Hemoglobin 27.5 pg (27.0-31.0); Mean Corpuscular Volume 92.3 fL (78.0-98.0); Mean Platelet Volume 9.3 fL (7.4-10.4); Platelet Count 166 thou/uL (130-400); RBC Distribution Width 15.2 % (11.5-14.5); White Blood Cell (WBC) Count 10.9 thou/uL (4.8-10.8)
[2020-12-15] MEDS ORDERED: Sodium Chloride 0.9% 100 ML ONE (18:00)
[2020-12-15] MEDS ORDERED: Dexamethasone 4 mg/ml Vial ONE (18:00)
[2020-12-15] MEDS ORDERED: Cefepime 2 GM VIAL ONE (18:00)
[2020-12-15 18:08] LABS: INR-International Normal Ratio 1.1; Prothrombin Time 14.6 sec (12.0-14.7)
[2020-12-15 18:09] LABS: D-Dimer Test 3.68 *mcg/mL (0.27-0.43)
[2020-12-15 18:10] LABS: Actual Bicarbonate (HCO3a) 31.4 mEq/L (22-28); Base Excess (BEa) 4.1 mEq/L (-2.0 to +3.0); CO2 Tension 56.4 mmHg (35.0-45.0); Calcium, Ionized (arterial) 1.17 mmol/L (1.12-1.30); Potassium - ABG Lab 4.04 mmol/L (3.70-5.30); pH, Arterial 7.36 (7.35-7.45)
[2020-12-15 18:16] LABS: ALT (SGPT) 20 U/L (8-55); AST (SGOT) 20 U/L (5-34); Acetaminophen Less than 6.0 mcg/mL (10.0-30.0); Alcohol Less than 10 mg/dL (Less than 10); Alkaline Phosphatase 75 U/L (40-110); Anion Gap 13 mmol/L (10-20); BUN (Urea Nitrogen) 8 mg/dL (8.9-20.6); Bilirubin, Total 1.6 mg/dL (0.2-1.2); CK (CPK) 121 U/L (30-200); Calc. Creatinine Clearance 0 mL/min (70-130); Calcium 9.6 mg/dL (7.8-10.44); Carbon Dioxide 29 mmol/L (22-29); Chloride 94 mmol/L (98-107); Globulin 3.8 g/dL (2.4-3.5); Glucose 182 mg/dL (70-105); Lipase 32 U/L (8-78); Potassium 4.4 mmol/L (3.5-5.1); Protein, Total 7.8 g/dL (6.0-8.3); Salicylate Less than 8.0 mg/dL (15.0-30.0); Sodium 132 mmol/L (136-145)
[2020-12-15 18:18] LABS: Band 3 % (5-11); Lymphocytes 11 % (21-51); MDiff Complete? YES; Monocytes 27 % (0-10); Neutrophil 58 % (42-75); Platelet Morphology Comment Appears Adequate; RBC Morphology Normal; Reactive Lymphocytes 1 % (0-10)
[2020-12-15 18:19] LABS: O2 Tension (PaO2), arterial 48.8 mmHg (80.0-100.0); Puncture Site RRA
[2020-12-15 18:23] LABS: Bacteria/HPF None Seen HPF (None Seen); Bilirubin Negative (Negative); Blood, Urine 1+ (Negative); Clarity Clear (Clear); Glucose, Urine (Dipstick) Normal (Negative); Ketone, Urine Negative (Negative); Leukocyte Negative Leu/uL (Negative); Nitrite Negative (Negative); Protein, Urine (Dipstick) 300 mg/dL (Neg-Trace); RBC/HPF 21-50 HPF (0-3); Specific Gravity, Urine 1.035 (1.002-1.036); Squamous Epithelial 0-3 HPF (0-3); Urobilinogen Greater than 12 mg/dL (Less than 2); pH, Urine 6.5 (5.0-9.0)
[2020-12-15 18:32] LABS: Cocaine Metabolite Screen Not Detected (NotDetected); Medtox Reader # READER 4; Methamphetamine Not Detected (NotDetected); Opiate Screen Not Detected (NotDetected); Phencyclidine (PCP) Detected (NotDetected); THC/Cannabinoid Screen Not Detected (NotDetected)
[2020-12-15] MEDS ORDERED: Acetaminophen 500 MG TAB ONE (18:32)
[2020-12-15 18:33] LABS: Amphetamine Not Detected (NotDetected); Barbiturates Screen Not Detected (NotDetected); Benzodiazepine Screen Not Detected (NotDetected); Medtox Control Line Valid? VALID (VALID); Methadone Not Detected (NotDetected); Oxycodone Screen Not Detected (NotDetected); Tricyclic Screen Not Detected (NotDetected)
[2020-12-15 19:11] LABS: SARS-CoV-2 NAA Rapid Test Not Detected (NotDetected)
[2020-12-15] MEDS ORDERED: Vancomycin 1 GM/200 ML BAG ONE (19:24)
[2020-12-15] MEDS ORDERED: Ondansetron PF 4 MG/2 ML Vial IVP PRN (21:16)
[2020-12-16 02:10] VITALS: BMI 50.3
[2020-12-16] MEDS ORDERED: VANCOMYCIN 1.75 GM/350 ML BAG 1.75 GM in Premix Bag 1 BAG IVPB SCH (04:00)
[2020-12-16 04:24] LABS: Hemoglobin A1c 5.9 % (4.0-6.0)
[2020-12-16 04:27] LABS: #Monocytes 0.6 thou/uL (0.11-0.59); #Neutrophils 6.8 thou/uL (1.40-6.50); %Basophils 0.1 % (0.0-1.0); %Lymphocytes 12.2 % (21.0-51.0); %Monocytes 6.9 % (0.0-10.0); %Neutrophils 80.7 % (42.0-75.0); Hemoglobin 17.5 g/dL (14.0-18.0); Mean Corpuscular HGB CONC 30.5 g/dL (32.0-36.0); Mean Corpuscular Hemoglobin 28.6 pg (27.0-31.0); Mean Corpuscular Volume 93.7 fL (78.0-98.0); Mean Platelet Volume 8.9 fL (7.4-10.4); Platelet Count 165 thou/uL (130-400); RBC Distribution Width 15.1 % (11.5-14.5); Red Blood Cell (RBC) Count 6.11 mill/uL (4.70-6.10); White Blood Cell (WBC) Count 8.5 thou/uL (4.8-10.8)
[2020-12-16] MEDS: Cefepime 2 GM in Sodium Chloride 0.9% 100 ML IVPB SCH ×2 (06:28→20:27)
[2020-12-16 06:51] LABS: ALT (SGPT) 23 U/L (8-55); AST (SGOT) 18 U/L (5-34); Albumin 3.8 g/dL (3.5-5.0); Alkaline Phosphatase 75 U/L (40-110); Anion Gap 12 mmol/L (10-20); BUN (Urea Nitrogen) 11 mg/dL (8.9-20.6); Bilirubin, Direct 0.7 mg/dL (0.1-0.3); Bilirubin, Total 1.2 mg/dL (0.2-1.2); Calc. Creatinine Clearance 257 mL/min (70-130); Calcium 9.3 mg/dL (7.8-10.44); Carbon Dioxide 35 mmol/L (22-29); Chloride 95 mmol/L (98-107); Glucose 145 mg/dL (70-105); Protein, Total 7.7 g/dL (6.0-8.3); Sodium 137 mmol/L (136-145)
[2020-12-16] MEDS: Famotidine 20 MG TAB PO SCH ×2 (08:05→20:38)
[2020-12-16] MEDS: Amlodipine 5 MG TAB PO SCH (08:05)
[2020-12-16] MEDS: Aspirin 81 mg Enteric Coated Tablet PO SCH (08:06)
[2020-12-16] MEDS: Enoxaparin Sodium 40 MG/0.4 ML SYRINGE SC SCH (08:06)
[2020-12-16] MEDS: Acetaminophen 325 MG TAB PO PRN ×2 (08:18→14:01)
[2020-12-16] MEDS ORDERED: Bisacodyl 10 MG SUPP PR PRN (10:18)
[2020-12-16] MEDS: VANCOMYCIN 1.75 GM/350 ML BAG 1.75 GM in Premix Bag 1 BAG IVPB SCH (16:08)
[2020-12-16] MEDS: Atorvastatin Calcium 40 MG TAB PO SCH (20:38)
[2020-12-16] MEDS: Senokot S 8.6-50 MG TAB PO SCH (20:38)
[2020-12-17] MEDS: VANCOMYCIN 1.75 GM/350 ML BAG 1.75 GM in Premix Bag 1 BAG IVPB SCH ×4 (00:18→23:54)
[2020-12-17] MEDS: Acetaminophen 325 MG TAB PO PRN ×2 (03:27→10:07)
[2020-12-17 04:10] LABS: Anion Gap 13 mmol/L (10-20); BUN (Urea Nitrogen) 12 mg/dL (8.9-20.6); Calc. Creatinine Clearance 297 mL/min (70-130); Calcium 9.1 mg/dL (7.8-10.44); Carbon Dioxide 33 mmol/L (22-29); Chloride 96 mmol/L (98-107); Glucose 136 mg/dL (70-105); Potassium 4.9 mmol/L (3.5-5.1); Sodium 137 mmol/L (136-145)
[2020-12-17 04:49] LABS: Band 18 % (5-11); Hemoglobin 15.7 g/dL (14.0-18.0); Lymphocytes 10 % (21-51); MDiff Complete? YES; Mean Corpuscular HGB CONC 30.3 g/dL (32.0-36.0); Mean Corpuscular Hemoglobin 28.5 pg (27.0-31.0); Mean Corpuscular Volume 93.8 fL (78.0-98.0); Mean Platelet Volume 9.1 fL (7.4-10.4); Monocytes 17 % (0-10); Neutrophil 55 % (42-75); Platelet Count 184 thou/uL (130-400); RBC Distribution Width 15.3 % (11.5-14.5); Red Blood Cell (RBC) Count 5.51 mill/uL (4.70-6.10); White Blood Cell (WBC) Count 12.6 thou/uL (4.8-10.8)
[2020-12-17 06:06] LABS: Vancomycin, Trough 30.6 ug/mL
[2020-12-17] MEDS: Cefepime 2 GM in Sodium Chloride 0.9% 100 ML IVPB SCH ×2 (06:10→17:07)
[2020-12-17 07:38] LABS: Vancomycin, Trough 17.4 ug/mL
[2020-12-17] MEDS: Polyethylene Glycol 3350 17 GM Packet PO SCH (09:54)
[2020-12-17] MEDS: Amlodipine 5 MG TAB PO SCH (09:54)
[2020-12-17] MEDS: Famotidine 20 MG TAB PO SCH ×2 (09:54→20:34)
[2020-12-17] MEDS: Aspirin 81 mg Enteric Coated Tablet PO SCH (09:54)
[2020-12-17] MEDS: Enoxaparin Sodium 40 MG/0.4 ML SYRINGE SC SCH (09:54)
[2020-12-17] MEDS: Senokot S 8.6-50 MG TAB PO SCH ×2 (09:54→20:34)
[2020-12-17] MEDS: Multivit, Therapeutic 1 TAB PO SCH (09:54)
[2020-12-17] MEDS: Atorvastatin Calcium 40 MG TAB PO SCH (20:34)
[2020-12-18] MEDS: Cefepime 2 GM in Sodium Chloride 0.9% 100 ML IVPB SCH (05:29)
[2020-12-18 06:11] LABS: Hemoglobin 14.9 g/dL (14.0-18.0); Mean Corpuscular HGB CONC 28.1 g/dL (32.0-36.0); Mean Corpuscular Hemoglobin 26.1 pg (27.0-31.0); Mean Corpuscular Volume 92.8 fL (78.0-98.0); Mean Platelet Volume 9.1 fL (7.4-10.4); Platelet Count 186 thou/uL (130-400); RBC Distribution Width 15.2 % (11.5-14.5); Red Blood Cell (RBC) Count 5.73 mill/uL (4.70-6.10); White Blood Cell (WBC) Count 10.2 thou/uL (4.8-10.8)
[2020-12-18 06:19] LABS: Band 6 % (5-11); Lymphocytes 24 % (21-51); MDiff Complete? YES; Monocytes 8 % (0-10); Neutrophil 62 % (42-75); Platelet Morphology Comment Appears Adequate; RBC Morphology Normal
[2020-12-18 06:31] LABS: Anion Gap 13 mmol/L (10-20); BUN (Urea Nitrogen) 6 mg/dL (8.9-20.6); Calc. Creatinine Clearance 312 mL/min (70-130); Calcium 9.3 mg/dL (7.8-10.44); Carbon Dioxide 32 mmol/L (22-29); Chloride 95 mmol/L (98-107); Glucose 106 mg/dL (70-105); Potassium 4.3 mmol/L (3.5-5.1); Sodium 136 mmol/L (136-145)
[2020-12-18] MEDS: Senokot S 8.6-50 MG TAB PO SCH ×2 (09:10→21:35)
[2020-12-18] MEDS: Enoxaparin Sodium 40 MG/0.4 ML SYRINGE SC SCH (09:10)
[2020-12-18] MEDS: Aspirin 81 mg Enteric Coated Tablet PO SCH (09:10)
[2020-12-18] MEDS: Famotidine 20 MG TAB PO SCH ×2 (09:10→21:35)
[2020-12-18] MEDS: Polyethylene Glycol 3350 17 GM Packet PO SCH (09:10)
[2020-12-18] MEDS: Amlodipine 5 MG TAB PO SCH (09:11)
[2020-12-18] MEDS: VANCOMYCIN 1.75 GM/350 ML BAG 1.75 GM in Premix Bag 1 BAG IVPB SCH (09:11)
[2020-12-18] MEDS: Multivit, Therapeutic 1 TAB PO SCH (09:11)
[2020-12-18] MEDS: Acetaminophen 325 MG TAB PO PRN ×2 (09:11→18:14)
[2020-12-18] MEDS ORDERED: Losartan 25 MG TAB PO SCH (18:45)
[2020-12-18] MEDS: Mometasone 200 MCG/Formoterol 5 MCG 120 PUFF INHALER INH SCH (18:47)
[2020-12-18] MEDS: Amoxicillin/Potassium Clav 875 MG TAB PO SCH (21:35)
[2020-12-18] MEDS: Atorvastatin Calcium 40 MG TAB PO SCH (21:35)
[2020-12-19] MEDS ORDERED: predniSONE 20 MG TAB PO SCH (08:00)
[2020-12-19] MEDS ORDERED: Losartan 25 MG TAB PO SCH (09:00)
[2020-12-19] MEDS: Mometasone 200 MCG/Formoterol 5 MCG 120 PUFF INHALER INH SCH (09:10)
[2020-12-19] MEDS: Famotidine 20 MG TAB PO SCH (09:36)
[2020-12-19] MEDS: Multivit, Therapeutic 1 TAB PO SCH (09:36)
[2020-12-19] MEDS: Amlodipine 5 MG TAB PO SCH (09:36)
[2020-12-19] MEDS: Amoxicillin/Potassium Clav 875 MG TAB PO SCH (09:36)
[2020-12-19] MEDS: Aspirin 81 mg Enteric Coated Tablet PO SCH (09:36)
[2020-12-19] MEDS: Enoxaparin Sodium 40 MG/0.4 ML SYRINGE SC SCH ×2 (09:37→09:40)
[2020-12-19] MEDS: Senokot S 8.6-50 MG TAB PO SCH (09:37)
[2020-12-19] MEDS: Polyethylene Glycol 3350 17 GM Packet PO SCH (09:38)
[2020-12-19 16:29] VITALS: BP 119/76; TEMP 98.4
== END 2020-12-19 15:48 | disposition home or self-care (01) | DRG 871 ==
LOC: ERS 16:56 → IMCU/EMU 21:16 → T4-A 12-18 20:10
PROVIDERS: ADMIT Internal Medicine; ATTEND Internal Medicine
PROC: 5A09457 Assistance with Respiratory Ventilation, 24-96 Consecutive Hours, Continuous Positive Airway Pressure (ICD-10-PCS; principal; 2020-12-15)
DX: A41.9 Sepsis, unspecified organism (principal); J18.9 Pneumonia, unspecified organism; J96.01 Acute respiratory failure with hypoxia; J96.02 Acute respiratory failure with hypercapnia; Z68.43 Body mass index [BMI] 50.0-59.9, adult; I50.32 Chronic diastolic (congestive) heart failure; R04.2 Hemoptysis; J45.901 Unspecified asthma with (acute) exacerbation; J84.9 Interstitial pulmonary disease, unspecified; J44.1 Chronic obstructive pulmonary disease with (acute) exacerbation; J44.0 Chronic obstructive pulmonary disease with (acute) lower respiratory infection; Z20.822 Contact with and (suspected) exposure to COVID-19; E66.01 Morbid (severe) obesity due to excess calories; G47.33 Obstructive sleep apnea (adult) (pediatric); I11.0 Hypertensive heart disease with heart failure; F17.210 Nicotine dependence, cigarettes, uncomplicated; F41.9 Anxiety disorder, unspecified; E78.5 Hyperlipidemia, unspecified; D75.1 Secondary polycythemia; R65.20 Severe sepsis without septic shock; R73.9 Hyperglycemia, unspecified; F19.90 Other psychoactive substance use, unspecified, uncomplicated; Z79.82 Long term (current) use of aspirin; Z79.51 Long term (current) use of inhaled steroids; Z79.899 Other long term (current) drug therapy; Z99.89 Dependence on other enabling machines and devices; Z91.14 Patient's other noncompliance with medication regimen
CPT/HCPCS: 36415; 36600; 71045; 71275; 80048; 80053; 80076; 80202; 80306; 80307; 81003; 81015; 82550; 82805; 83036; 83605; 83690; 83735; 83880; 84443; 84484; 85025; 85379; 85610; 85730; 87040; 87086; 93005; 93010; 94640; 94760; 96365; 96367; 96375; J0692; J1100; J1650; J3370; J3490; J7512; J7620; Q9967; U0002

== ENCOUNTER 2021-01-28 11:36 | Outpatient (CLI) | payer MEDICAID | END 2021-01-28 11:37 | disposition home or self-care (01) | LOC: RAD 11:36 | PROVIDERS: ATTEND Internal Medicine Critical Care Medicine | DX: R06.00 Dyspnea, unspecified (principal) | CPT/HCPCS: 71046 ==

== ENCOUNTER 2021-03-26 14:10 | Outpatient (CLI) | payer OTHER ==
[~2021-03-26 14:10] MED LIST changes: -Iopamidol-370 76% 500 ML 1 ML ONE; +Magnevist 469MG/ML 20 ML VIAL ONE
== END 2021-03-26 14:11 | disposition home or self-care (01) ==
LOC: TBSIIMAG 14:10
PROVIDERS: ATTEND Family Medicine
DX: H47.10 Unspecified papilledema (principal); G93.2 Benign intracranial hypertension
CPT/HCPCS: 70553; A9579

== ENCOUNTER → 2021-07-03 | Day surgery (SDC) | payer OTHER ==
[2021-07-01 15:19] VITALS: BMI 59.8
[2021-07-03 09:19] LABS: Color Of CSF Supernatant COLORLESS (Colorless); Tube # 1; Unspun CSF Color COLORLESS (Colorless)
[2021-07-03 09:25] LABS: CSF Source CSF; Clarity Clear (Clear); Tube # 4
[2021-07-03 09:32] LABS: CSF, Glucose 79 mg/dl (40-70); CSF, Protein 34 mg/dL (15-40)
[2021-07-03 09:43] VITALS: BP 131/82
== END ==
LOC: RAD 07:10
PROVIDERS: ATTEND Nurse Practitioner Acute Care
PROC: 009U3ZX Drainage of Spinal Canal, Percutaneous Approach, Diagnostic (ICD-10-PCS; principal; 2021-07-03)
DX: G93.2 Benign intracranial hypertension (principal); J45.909 Unspecified asthma, uncomplicated; I51.9 Heart disease, unspecified; F17.210 Nicotine dependence, cigarettes, uncomplicated; Z79.82 Long term (current) use of aspirin; Z79.84 Long term (current) use of oral hypoglycemic drugs; Z79.899 Other long term (current) drug therapy
CPT/HCPCS: 62270; 82945; 84157; 89051

== ENCOUNTER 2022-01-27 08:54 | Outpatient (CLI) | payer OTHER | END 2022-01-27 08:55 | disposition home or self-care (01) | LOC: RAD 08:54 | PROVIDERS: ATTEND Internal Medicine Critical Care Medicine | DX: R06.00 Dyspnea, unspecified (principal) | CPT/HCPCS: 71046 ==

== ENCOUNTER 2022-05-25 08:59 | Outpatient (CLI) | payer OTHER | END 2022-05-25 09:00 | disposition home or self-care (01) | LOC: RAD 08:59 | PROVIDERS: ATTEND Internal Medicine Critical Care Medicine | DX: R06.00 Dyspnea, unspecified (principal) | CPT/HCPCS: 71046 ==

== ENCOUNTER 2022-08-04 08:30 | Inpatient (IN) | payer OTHER ==
[2022-08-06] MEDS ORDERED: Bupivacaine/Epinephrine 0.25% 30 ML VIAL ONE (06:29)
[2022-08-06] MEDS ORDERED: Bacitracin Zinc Ointment 30 gm TUBE ONE (06:29)
[2022-08-06] MEDS ORDERED: Vancomycin 1 GM VIAL ONE (06:29)
[2022-08-06] MEDS ORDERED: Albuterol Sulfate HFA (OR ONLY) ONE ×2 (06:38→07:18)
[2022-08-06] MEDS ORDERED: Fentanyl 250 MCG/5 ML VIAL ONE (06:38)
[2022-08-06] MEDS ORDERED: Midazolam HCl 2 mg/2 ml Vial ONE (06:51)
[2022-08-06] MEDS ORDERED: CEFAZOLIN 2 GM VIAL ONE (07:02)
[2022-08-06] MEDS ORDERED: Sodium Chloride 0.9% 100 ML ONE (07:02)
[2022-08-06] MEDS ORDERED: Naloxone HCl 0.4 mg/ml Vial ONE ×2 (07:18→09:18)
[2022-08-06] MEDS ORDERED: Ondansetron PF 4 MG/2 ML Vial ONE (07:18)
[2022-08-06] MEDS ORDERED: Succinylcholine Chloride 100 MG/5 ML SYRINGE FS ONE (07:18)
[2022-08-06] MEDS ORDERED: Metoprolol Tartrate 5 MG/5 ML VIAL ONE ×2 (07:18→10:05)
[2022-08-06] MEDS ORDERED: PROPOFOL 200 MG/20 ML VIAL ONE (07:18)
[2022-08-06] MEDS ORDERED: Esmolol 100 MG/10 ML VIAL ONE (07:18)
[2022-08-06] MEDS ORDERED: Lidocaine 1% PF 5 ML VIAL ONE (07:18)
[2022-08-06] MEDS ORDERED: Rocuronium Bromide 10 MG/ML (10ML VIAL) ONE (07:18)
[2022-08-06 07:41] LABS: SARS-CoV-2 NAA Rapid Test Not Detected (NotDetected)
[2022-08-06] MEDS ORDERED: SUGAMMADEX SODIUM 200 MG/2 ML VIAL ONE ×2 (08:41→09:24)
[2022-08-06] MEDS ORDERED: HYDROcodone/Acetaminophen 7.5/325 mg Tablet PO PRN (09:04)
[2022-08-06] MEDS ORDERED: Docusate 100 MG CAP PO PRN (09:04)
[2022-08-06] MEDS ORDERED: Ondansetron PF 4 MG/2 ML Vial IVP PRN (09:04)
[2022-08-06] MEDS ORDERED: hydrALAZINE 20 MG/ML VIAL SLOW IVP PRN ×2 (09:04→10:27)
[2022-08-06] MEDS ORDERED: Morphine 2 MG/ML VIAL SLOW IVP PRN (09:04)
[2022-08-06] MEDS ORDERED: Promethazine HCl 12.5 MG in Sodium Chloride 0.9% 50 ML IVPB PRN (09:07)
[2022-08-06] MEDS ORDERED: tiZANidine HCl 4 MG TAB PO PRN (09:07)
[2022-08-06] MEDS ORDERED: Acetaminophen/Codeine 30-300mg Tablet PO PRN (09:07)
[2022-08-06] MEDS ORDERED: traZODone HCl 150 MG TAB PO PRN (09:09)
[2022-08-06] MEDS ORDERED: Albuterol 200 PUFF (6.7GM INHALER) INH PRN (09:09)
[2022-08-06] MEDS ORDERED: AcetaZOLAMIDE ER 500 MG CAP PO SCH (09:15)
[2022-08-06] MEDS ORDERED: Magnesium 5 GM/10 ML Abboject SYRINGE ONE (09:32)
[2022-08-06] MEDS ORDERED: Liraglutide [Victoza 2-Pak] 0.6 MG/0.1 ML Pen.Injctr SC PRN (09:33)
[2022-08-06] MEDS ORDERED: Ondansetron HCl/PF 4 MG/2 ML Vial IVP PRN (10:26)
[2022-08-06] MEDS ORDERED: Promethazine HCl 25 MG/ML VIAL IM PRN (10:26)
[2022-08-06] MEDS ORDERED: Promethazine HCl 25 MG/ML VIAL IVPB PRN (10:26)
[2022-08-06] MEDS ORDERED: hydrALAZINE 20 MG/ML VIAL ONE (10:45)
[2022-08-06] MEDS: Sodium Chloride 0.9% 1,000 ML IV SCH ×2 (11:53→23:02)
[2022-08-06] MEDS: niCARdipine 25 MG in Sodium Chloride 0.9% 250 ML 250 ML IVPB SCH ×2 (12:40→14:42)
[2022-08-06] MEDS ORDERED: Labetalol HCl 100 MG/20 ML VIAL SLOW IVP PRN (14:09)
[2022-08-06] MEDS: HYDROcodone/Acetaminophen 5/325 mg Tablet PO PRN ×2 (14:14→20:47)
[2022-08-06] MEDS ORDERED: cloNIDine 0.1 MG TAB PO PRN (15:25)
[2022-08-06] MEDS: niCARdipine 50 MG, Admixture Fee 1 EACH in Sodium Chloride 0.9% 250 ML 230 ML IVPB SCH ×2 (16:31→19:47)
[2022-08-06] MEDS: CEFAZOLIN 2 GM in Sodium Chloride 0.9% 100 ML IVPB SCH ×2 (16:34→23:29)
[2022-08-06] MEDS: metFORMIN 500 MG TAB PO SCH (16:34)
[2022-08-06] MEDS: Enalaprilat Dihydrate 1.25 MG/ML VIAL SLOW IVP SCH (19:32)
[2022-08-06] MEDS: Metoprolol Tartrate 25 MG TAB PO SCH (20:29)
[2022-08-07] MEDS: Enalaprilat Dihydrate 1.25 MG/ML VIAL SLOW IVP SCH ×2 (00:16→05:34)
[2022-08-07 04:05] LABS: #Lymphocytes 1.6 thou/uL (1.20-3.40); #Monocytes 1.4 thou/uL (0.11-0.59); %Basophils 0.1 % (0.0-1.0); %Eosinophils 0.2 % (0.0-10.0); %Lymphocytes 13.2 % (21.0-51.0); %Monocytes 11.5 % (0.0-10.0); %Neutrophils 75.1 % (42.0-75.0); Hemoglobin 15.7 g/dL (14.0-18.0); Mean Corpuscular HGB CONC 30.6 g/dL (32.0-36.0); Mean Corpuscular Hemoglobin 30.2 pg (27.0-31.0); Mean Corpuscular Volume 98.6 fl (78.0-98.0); Mean Platelet Volume 8.4 fL (7.4-10.4); Platelet Count 159 10x3/uL (130-400); Red Blood Cell (RBC) Count 5.19 mill/uL (4.70-6.10)
[2022-08-07 04:20] LABS: Anion Gap 14 mmol/L (10-20); BUN (Urea Nitrogen) 6 mg/dL (8.9-20.6); Calc. Creatinine Clearance 268 mL/min (70-130); Calcium 8.5 mg/dL (7.8-10.44); Carbon Dioxide 24 mmol/L (22-29); Chloride 107 mmol/L (98-107); Estimated GFR 100; Glucose 127 mg/dL (70-105); Potassium 4.6 mmol/L (3.5-5.1); Sodium 140 mmol/L (136-145)
[2022-08-07] MEDS: niCARdipine 50 MG, Admixture Fee 1 EACH in Sodium Chloride 0.9% 250 ML 230 ML IVPB SCH (04:22)
[2022-08-07] MEDS ORDERED: Enalaprilat Dihydrate 1.25 MG/ML VIAL SLOW IVP PRN (08:10)
[2022-08-07] MEDS ORDERED: Electrolyte Replacement Protocol 1 EACH FS SCH (08:15)
[2022-08-07] MEDS: CEFAZOLIN 2 GM in Sodium Chloride 0.9% 100 ML IVPB SCH (09:10)
[2022-08-07] MEDS: Metoprolol Tartrate 25 MG TAB PO SCH ×2 (09:11→20:29)
[2022-08-07] MEDS: Losartan 25 MG TAB PO SCH (09:11)
[2022-08-07] MEDS: Atorvastatin Calcium 40 MG TAB PO SCH (09:11)
[2022-08-07] MEDS: Multivit, Therapeutic 1 TAB PO SCH (09:11)
[2022-08-07] MEDS ORDERED: Electrolyte Replacement Protocol FS PRN (10:00)
[2022-08-07] MEDS: HYDROcodone/Acetaminophen 5/325 mg Tablet PO PRN (13:11)
[2022-08-07] MEDS: Amlodipine 5 MG TAB PO SCH ×2 (14:37→20:28)
[2022-08-07] MEDS: metFORMIN 500 MG TAB PO SCH ×2 (17:32→17:44)
[2022-08-07 19:15] LABS: Actual Bicarbonate (HCO3a) 30.2 mEq/L (22-28); Base Excess (BEa) -3.4 mEq/L (-2.0 to +3.0); Calcium, Ionized (arterial) 1.23 mmol/L (1.12-1.30); Carboxyhemoglobin (COHb) 1.7 gm% (0.0-3.0); Hemoglobin (Hb) 16.1 g/dL (14.0-18.0); O2 Tension (PaO2), arterial 125.9 mmHg (80.0-100.0); Potassium - ABG Lab 4.44 mmol/L (3.70-5.30)
[2022-08-07 19:20] LABS: CO2 Tension 104.5 mmHg (35.0-45.0); Puncture Site RRA; pH, Arterial 7.08 (7.35-7.45)
[2022-08-07 19:21] LABS: ALV-art Gradient 99.975 mmHg (0-20)
[2022-08-07 22:12] LABS: Actual Bicarbonate (HCO3a) 30.7 mEq/L (22-28); Base Excess (BEa) -1.7 mEq/L (-2.0 to +3.0); Calcium, Ionized (arterial) 1.21 mmol/L (1.12-1.30); Carboxyhemoglobin (COHb) 1.8 gm% (0.0-3.0); O2 Tension (PaO2), arterial 79.4 mmHg (80.0-100.0); Potassium - ABG Lab 4.44 mmol/L (3.70-5.30)
[2022-08-07 22:15] LABS: CO2 Tension 92.9 mmHg (35.0-45.0); Puncture Site RRA; pH, Arterial 7.14 (7.35-7.45)
[2022-08-07 22:16] LABS: ALV-art Gradient 160.975 mmHg (0-20)
[2022-08-08 04:35] VITALS: BMI 60.7
[2022-08-08 08:07] LABS: Actual Bicarbonate (HCO3a) 29.2 mEq/L (22-28); CO2 Tension 82.1 mmHg (35.0-45.0); Carboxyhemoglobin (COHb) 1.5 gm% (0.0-3.0); Hemoglobin (Hb) 15.8 g/dL (14.0-18.0); O2 Tension (PaO2), arterial 90.9 mmHg (80.0-100.0); Potassium - ABG Lab 4.67 mmol/L (3.70-5.30); pH, Arterial 7.17 (7.35-7.45)
[2022-08-08 08:08] LABS: ALV-art Gradient 162.975 mmHg (0-20); Puncture Site RRA
[2022-08-08 08:15] LABS: #Eosinphils 0.1 thou/uL (0.0-0.7); #Monocytes 1.6 thou/uL (0.11-0.59); #Neutrophils 9.5 thou/uL (1.40-6.50); %Basophils 0.1 % (0.0-1.0); %Lymphocytes 8.3 % (21.0-51.0); %Monocytes 12.7 % (0.0-10.0); %Neutrophils 77.9 % (42.0-75.0); Mean Corpuscular HGB CONC 30.8 g/dL (32.0-36.0); Mean Corpuscular Hemoglobin 31.1 pg (27.0-31.0); Mean Platelet Volume 8.5 fL (7.4-10.4); Platelet Count 144 10x3/uL (130-400); RBC Distribution Width 14.4 % (11.5-14.5); Red Blood Cell (RBC) Count 4.82 mill/uL (4.70-6.10); White Blood Cell (WBC) Count 12.2 10x3/uL (4.8-10.8)
[2022-08-08 10:03] LABS: Anion Gap 13 mmol/L (10-20); BUN (Urea Nitrogen) 7 mg/dL (8.9-20.6); Calc. Creatinine Clearance 330 mL/min (70-130); Calcium 8.8 mg/dL (7.8-10.44); Carbon Dioxide 25 mmol/L (22-29); Chloride 106 mmol/L (98-107); Estimated GFR 121; Glucose 150 mg/dL (70-105); Potassium 5.4 mmol/L (3.5-5.1); Sodium 139 mmol/L (136-145)
[2022-08-08] MEDS: Atorvastatin Calcium 40 MG TAB PO SCH (10:04)
[2022-08-08] MEDS: Losartan 25 MG TAB PO SCH (10:04)
[2022-08-08] MEDS: Amlodipine 5 MG TAB PO SCH ×2 (10:04→22:19)
[2022-08-08] MEDS: Multivit, Therapeutic 1 TAB PO SCH (10:05)
[2022-08-08] MEDS: Metoprolol Tartrate 25 MG TAB PO SCH ×2 (10:05→22:19)
[2022-08-08] MEDS: Sodium Chloride 0.9% 1,000 ML IV SCH (10:30)
[2022-08-08 11:12] LABS: Actual Bicarbonate (HCO3v) 29 mEq/L (22-28); Base Excess -1.8 mEq/L (-2.0 to +3.0); Calcium, Ionized (venous) 1.21 mmol/L (1.16-1.32); Chloride (VBG) 101 mmol/L (98-106); Hemoglobin (Hb) 15.7 g/dL (13.2-17.3); Potassium (VBG) 4.58 mmol/L (3.70-5.30); Sodium 139.3 mmol/L (133-146)
[2022-08-08 11:13] LABS: pH (venous) 7.18 (7.32-7.43)
[2022-08-08] MEDS: acetaZOLAMIDE Sodium 500 mg Vial IVP SCH ×2 (11:36→22:15)
[2022-08-08] MEDS: metFORMIN 500 MG TAB PO SCH (17:02)
[2022-08-09 05:04] LABS: Actual Bicarbonate (HCO3a) 26.7 mEq/L (22-28); Base Excess (BEa) -1.9 mEq/L (-2.0 to +3.0); Calcium, Ionized (arterial) 1.26 mmol/L (1.12-1.30); Carboxyhemoglobin (COHb) 1.6 gm% (0.0-3.0); Hemoglobin (Hb) 15.1 g/dL (14.0-18.0); O2 Tension (PaO2), arterial 116.7 mmHg (80.0-100.0); Potassium - ABG Lab 4.27 mmol/L (3.70-5.30); pH, Arterial 7.26 (7.35-7.45)
[2022-08-09 05:09] LABS: ALV-art Gradient 91.625 mmHg (0-20); CO2 Tension 61.5 mmHg (35.0-45.0); Puncture Site RRA
[2022-08-09] MEDS: Sodium Chloride 0.9% 1,000 ML IV SCH (05:24)
[2022-08-09] MEDS: Losartan 25 MG TAB PO SCH (08:05)
[2022-08-09] MEDS: acetaZOLAMIDE Sodium 500 mg Vial IVP SCH ×2 (08:05→21:32)
[2022-08-09] MEDS: Multivit, Therapeutic 1 TAB PO SCH (08:05)
[2022-08-09] MEDS: Amlodipine 5 MG TAB PO SCH ×2 (08:05→21:32)
[2022-08-09] MEDS: Atorvastatin Calcium 40 MG TAB PO SCH (08:05)
[2022-08-09] MEDS: Metoprolol Tartrate 25 MG TAB PO SCH ×2 (11:08→21:32)
[2022-08-09] MEDS: Acetaminophen 325 MG TAB PO PRN (11:08)
[2022-08-09] MEDS: metFORMIN 500 MG TAB PO SCH (17:05)
[2022-08-10 08:05] LABS: Actual Bicarbonate (HCO3v) 25 mEq/L (22-28); Analyzer IN Cardio OR; Base Excess -1.1 mEq/L (-2.0 to +3.0); Calcium, Ionized (venous) 1.19 mmol/L (1.16-1.32); Chloride (VBG) 107 mmol/L (98-106); Hemoglobin (Hb) 15.3 g/dL (13.2-17.3); Potassium (VBG) 3.84 mmol/L (3.70-5.30); Sodium 139.1 mmol/L (133-146); pH (venous) 7.36 (7.32-7.43)
[2022-08-10] MEDS ORDERED: Sterile Water 10 ML ONE (08:26)
[2022-08-10 09:00] LABS: #Eosinphils 0.2 thou/uL (0.0-0.7); #Lymphocytes 1.9 thou/uL (1.20-3.40); #Monocytes 1.2 thou/uL (0.11-0.59); #Neutrophils 7.4 thou/uL (1.40-6.50); %Basophils 0.3 % (0.0-1.0); %Eosinophils 1.7 % (0.0-10.0); %Lymphocytes 17.6 % (21.0-51.0); %Monocytes 11.4 % (0.0-10.0); %Neutrophils 68.9 % (42.0-75.0); Hemoglobin 14.7 g/dL (14.0-18.0); Mean Corpuscular HGB CONC 30.9 g/dL (32.0-36.0); Mean Corpuscular Hemoglobin 30.8 pg (27.0-31.0); Mean Corpuscular Volume 99.7 fl (78.0-98.0); Mean Platelet Volume 8.4 fL (7.4-10.4); Platelet Count 187 10x3/uL (130-400); RBC Distribution Width 14.2 % (11.5-14.5); Red Blood Cell (RBC) Count 4.77 mill/uL (4.70-6.10); White Blood Cell (WBC) Count 10.7 10x3/uL (4.8-10.8)
[2022-08-10 09:07] LABS: Anion Gap 11 mmol/L (10-20); BUN (Urea Nitrogen) 14 mg/dL (8.9-20.6); Calc. Creatinine Clearance 366 mL/min (70-130); Calcium 9.7 mg/dL (7.8-10.44); Carbon Dioxide 24 mmol/L (22-29); Chloride 109 mmol/L (98-107); Estimated GFR 126; Glucose 99 mg/dL (70-105); Potassium 3.8 mmol/L (3.5-5.1); Sodium 140 mmol/L (136-145)
[2022-08-10] MEDS: acetaZOLAMIDE Sodium 500 mg Vial IVP SCH (09:13)
[2022-08-10] MEDS: Losartan 25 MG TAB PO SCH (09:14)
[2022-08-10] MEDS: Amlodipine 5 MG TAB PO SCH (09:14)
[2022-08-10] MEDS: Metoprolol Tartrate 25 MG TAB PO SCH (09:14)
[2022-08-10] MEDS: Atorvastatin Calcium 40 MG TAB PO SCH (09:14)
[2022-08-10] MEDS: Multivit, Therapeutic 1 TAB PO SCH (09:14)
[2022-08-10] MEDS: Acetaminophen 325 MG TAB PO PRN (12:04)
[2022-08-10 16:04] VITALS: BP 162/112
[2022-08-10] MEDS: metFORMIN 500 MG TAB PO SCH (17:14)
[2022-08-10 17:20] VITALS: TEMP 98
== END 2022-08-10 18:50 | disposition home or self-care (01) | DRG 31 ==
LOC: SURG A 08-06 05:46 → CCU 08-06 11:29 → IMCU/EMU 08-09 20:19
PROVIDERS: ADMIT Surgery; ATTEND Surgery
PROC: 00160J6 Bypass Cerebral Ventricle to Peritoneal Cavity with Synthetic Substitute, Open Approach (ICD-10-PCS; principal; 2022-08-06)
PROC: 0WJG4ZZ Inspection of Peritoneal Cavity, Percutaneous Endoscopic Approach (ICD-10-PCS; 2022-08-06)
DX: G93.2 Benign intracranial hypertension (principal); G93.41 Metabolic encephalopathy; J96.21 Acute and chronic respiratory failure with hypoxia; J96.22 Acute and chronic respiratory failure with hypercapnia; J84.9 Interstitial pulmonary disease, unspecified; Z68.44 Body mass index [BMI] 60.0-69.9, adult; E66.2 Morbid (severe) obesity with alveolar hypoventilation; Z20.822 Contact with and (suspected) exposure to COVID-19; F17.210 Nicotine dependence, cigarettes, uncomplicated; E87.5 Hyperkalemia; Z79.82 Long term (current) use of aspirin; Z79.899 Other long term (current) drug therapy; Z91.013 Allergy to seafood
CPT/HCPCS: 36415; 36416; 36600; 70450; 71045; 80048; 82805; 85025; 85027; 85610; 85730; 93005; 93010; 93970; 94640; 94660; C1713; C1750; C1889; J0360; J1120; J2250; J2272; J2310; J2405; J2704; J3010; J3370; J3475; J3490; J7050; J7620; U0002

== ENCOUNTER 2022-08-04 12:40 | Outpatient (CLI) | payer OTHER ==
[2022-08-04 13:58] LABS: Mean Corpuscular HGB CONC 32.3 g/dL (32.0-36.0); Mean Corpuscular Hemoglobin 30.4 pg (27.0-33.0); Mean Corpuscular Volume 93.9 fl (81.2-95.1); Mean Platelet Volume 9.9 fl (7.4-10.4); Platelet Count 208 10x3/uL (150-450); RBC Distribution Width 15.6 % (11.5-14.5); Red Blood Cell (RBC) Count 5.27 10x6/uL (4.32-5.72); White Blood Cell (WBC) Count 7.5 10x3/uL (3.5-10.5)
[2022-08-04 14:13] LABS: Prothrombin Time 10.7 sec (9.5-12.1)
[2022-08-04 14:16] LABS: Anion Gap 13 mmol/L (10-20); BUN (Urea Nitrogen) 11 mg/dL (8.9-20.6); Calc. Creatinine Clearance 0 mL/min (70-130); Calcium 9.2 mg/dL (7.8-10.44); Carbon Dioxide 23 mmol/L (22-29); Chloride 108 mmol/L (98-107); Estimated GFR 109; Glucose 104 mg/dL (70-105); Potassium 3.9 mmol/L (3.5-5.1); Sodium 140 mmol/L (136-145)
== END 2022-08-04 12:41 | disposition home or self-care (01) ==
LOC: LABBT 12:40
PROVIDERS: ATTEND Surgery
DX: Z01.818 Encounter for other preprocedural examination (principal); G93.2 Benign intracranial hypertension
CPT/HCPCS: 80048; 85027; 85610; 85730; 93005; 93010

== ENCOUNTER 2022-10-07 11:01 | Outpatient (CLI) | payer OTHER | END 2022-10-07 11:02 | disposition home or self-care (01) | LOC: RAD 11:01 | PROVIDERS: ATTEND Internal Medicine Critical Care Medicine | DX: R06.00 Dyspnea, unspecified (principal) | CPT/HCPCS: 71046 ==

== ENCOUNTER 2023-02-26 14:16 | Emergency (ER) | payer OTHER ==
[2023-02-26 15:03] LABS: #Monocytes 0.6 thou/uL (0.11-0.59); #Neutrophils 2.8 thou/uL (1.40-6.50); %Basophils 0.7 % (0.0-1.0); %Eosinophils 0.9 % (0.0-10.0); %Lymphocytes 23.9 % (21.0-51.0); %Monocytes 12.6 % (0.0-10.0); %Neutrophils 61.5 % (42.0-75.0); Hemoglobin 16.9 g/dL (14.0-18.0); Mean Corpuscular HGB CONC 32.6 g/dL (32.0-36.0); Mean Corpuscular Hemoglobin 28.7 pg (27.0-31.0); Mean Corpuscular Volume 88.1 fl (78.0-98.0); Mean Platelet Volume 10.1 fL (7.4-10.4); Platelet Count 184 10x3/uL (130-400); RBC Distribution Width 16.8 % (11.5-14.5); Red Blood Cell (RBC) Count 5.89 mill/uL (4.70-6.10); White Blood Cell (WBC) Count 4.5 10x3/uL (4.8-10.8)
[2023-02-26 15:33] LABS: ALT (SGPT) 32 U/L (8-55); AST (SGOT) 19 U/L (5-34); Albumin 4.6 g/dL (3.5-5.0); Alkaline Phosphatase 85 U/L (40-110); Anion Gap 15 mmol/L (10-20); BUN (Urea Nitrogen) 11 mg/dL (8.9-20.6); Bilirubin, Total 0.5 mg/dL (0.2-1.2); Calc. Creatinine Clearance 0 mL/min (70-130); Calcium 9.6 mg/dL (7.8-10.44); Carbon Dioxide 31 mmol/L (22-29); Chloride 97 mmol/L (98-107); Estimated GFR 96; Globulin 3.1 g/dL (2.4-3.5); Glucose 99 mg/dL (70-105); Potassium 3.7 mmol/L (3.5-5.1); Protein, Total 7.7 g/dL (6.0-8.3); Sodium 139 mmol/L (136-145)
== END 2023-02-26 16:45 | disposition home or self-care (01) ==
LOC: ERS 14:16
DX: D45 Polycythemia vera (principal); I11.0 Hypertensive heart disease with heart failure; I50.9 Heart failure, unspecified; E11.9 Type 2 diabetes mellitus without complications; J44.9 Chronic obstructive pulmonary disease, unspecified; F17.210 Nicotine dependence, cigarettes, uncomplicated
CPT/HCPCS: 36415; 71045; 80053; 83880; 84484; 85025; 99195

== ENCOUNTER 2023-05-21 22:34 | Emergency (ER) | payer OTHER | END 2023-05-22 00:45 | disposition home or self-care (01) | LOC: ERS 22:34 | DX: D75.1 Secondary polycythemia (principal); I11.0 Hypertensive heart disease with heart failure; I50.9 Heart failure, unspecified; J44.9 Chronic obstructive pulmonary disease, unspecified; E11.9 Type 2 diabetes mellitus without complications; Z79.84 Long term (current) use of oral hypoglycemic drugs; Z79.82 Long term (current) use of aspirin; I16.0 Hypertensive urgency | CPT/HCPCS: 70450; 71046; 80053; 83735; 85025; 93005; 93010; 96374; 96375; 99195; 99284; J1885; J2765 ==

== ENCOUNTER 2024-01-18 10:05 | Outpatient (CLI) | payer OTHER | END 2024-01-18 10:06 | disposition home or self-care (01) | LOC: RAD 10:05 | PROVIDERS: ATTEND Internal Medicine Critical Care Medicine | DX: R06.00 Dyspnea, unspecified (principal) | CPT/HCPCS: 71046 ==

== ENCOUNTER 2024-02-01 05:46 | Day surgery (SDC) | payer OTHER ==
[2024-01-28 11:30] VITALS: BMI 52.9
[2024-02-01] MEDS ORDERED: PROPOFOL 60 ML ONE (07:08)
[2024-02-01] MEDS ORDERED: Lidocaine 2% PF 5 ML VIAL ONE (07:08)
[2024-02-01] MEDS ORDERED: PROPOFOL 40 ML ONE ×2 (07:16→08:11)
[2024-02-01] MEDS ORDERED: ePHEDrine Sulfate 50 MG/10 ML VIAL ONE (07:16)
== END 2024-02-01 09:18 | disposition home or self-care (01) ==
LOC: SDC 05:46
PROVIDERS: ATTEND Internal Medicine
PROC: 0DBN8ZZ Excision of Sigmoid Colon, Via Natural or Artificial Opening Endoscopic (ICD-10-PCS; principal; 2024-02-01)
PROC: 0DBN8ZX Excision of Sigmoid Colon, Via Natural or Artificial Opening Endoscopic, Diagnostic (ICD-10-PCS; 2024-02-01)
DX: Z12.11 Encounter for screening for malignant neoplasm of colon (principal); K64.8 Other hemorrhoids; J44.9 Chronic obstructive pulmonary disease, unspecified; I11.0 Hypertensive heart disease with heart failure; I50.9 Heart failure, unspecified; G47.30 Sleep apnea, unspecified; E11.9 Type 2 diabetes mellitus without complications; E78.00 Pure hypercholesterolemia, unspecified; Z99.81 Dependence on supplemental oxygen; Z79.82 Long term (current) use of aspirin; Z80.0 Family history of malignant neoplasm of digestive organs; Z79.899 Other long term (current) drug therapy; Z79.84 Long term (current) use of oral hypoglycemic drugs; F17.210 Nicotine dependence, cigarettes, uncomplicated
CPT/HCPCS: 45380; 45385; J2001; J2704; 88305